=== PATIENT | female | born 1955 | race Caucasian/White ===

== ENCOUNTER 2018-05-26 08:59 | Inpatient (IN) ==
[2018-05-26] MEDS ORDERED: diphenhydrAMINE 50 MG/ML VIAL IV ONE ×2 (09:14→16:35)
--- NOTE | 2018-05-26 09:51 | Emergency Department Note ---
Allergic Reaction HPI - General Chief complaint: Allergic Reaction Stated complaint: fever, rash all over body Time Seen by Provider: 05/26/18 09:43 Source: patient Mode of arrival: wheelchair Limitations: no limitations - History of Present Illness HPI Narrative: This 62-year-old female comes because of an allergic reaction to daptomycin presumably with onset of a rash and itchiness around 7 PM last evening. She receives daptomycin every morning around 10 AM. She has a PICC line. 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 She was on vancomycin for around a month. She has been on the daptomycin about 5 days and this has been under the guidance of Dr. Balderas, infectious disease. She reports a temperature of 100.2 last evening as well as some chills and sweats. REVIEW OF SYSTEMS: Denies chest pain. Has had some cough in the past 24 hours. Has some chronic shortness of breath. No wheezing. No phlegm. Feels some tightness and pressure. Some abdominal discomforts. No nausea or vomiting. No diarrhea currently but she has a past history of this being fairly common. Denies anxiety and depression. - Related Data Home Medications Medication Instructions Recorded Confirmed Cetirizine [Zyrtec] 10 mg PO DAILY 12/29/15 05/22/18 Citalopram Hydrobromide [Celexa] 40 mg PO DAILY 12/29/15 05/22/18 Divalproex Sodium [Depakote] 250 mg PO HS 12/29/15 05/22/18 Ergocalciferol (Vitamin D2) 50,000 unit PO 2-3XW 12/29/15 05/22/18 [Vitamin D2] Gabapentin [Gralise] 600 mg PO HS 12/29/15 05/22/18 [place] Carbonate [Lithobid] 300 mg PO HS 12/29/15 05/22/18 Multivitamin [Multi-Day Vitamins] 1 each PO DAILY 12/29/15 05/22/18 Onabotulinumtoxina [Botox] 1 unit IJ ONCE 03/26/18 05/22/18 Pantoprazole [Protonix] 40 mg PO QAMAC 03/26/18 05/22/18 duloxetine 30 mg capsule,delayed 30 mg PO QDAY 05/07/18 05/22/18 release loperamide 2 mg capsule 4 mg PO DAILY PRN 05/07/18 05/22/18 pioglitazone 45 mg tablet 45 mg PO QDAY 05/07/18 05/22/18 risperidone 0.25 mg tablet 0.25 mg PO BID 05/22/18 05/22/18 Previous Rx's Medication Instructions Recorded Hydrocodone/APAP 7.5/325Mg [[place] 1 - 2 tab PO Q4HP PRN #50 tab 05/01/18 7.5-325Mg] daptomycin 500 mg intravenous 726 mg IV Q24H #21 each 05/20/18 solution Allergies Allergy/AdvReac Type Severity Reaction Status Date / Time clindamycin Allergy Severe Rash Verified 05/26/18 09:02 Past Medical History - Past Medical History [facility] Narrative: All Active Problems (Last Reviewed 05/22/18 @ 10:23 by Mary Carmen Díaz RN) Corns and callus (Chronic) Incontinence of urine (Chronic) Incontinence of feces (Chronic) Vitamin D deficiency (Chronic) Cerumen impaction (Chronic) Decreased strength (Chronic) Low back pain (Chronic) DDD (degenerative disc disease) (Chronic) Bipolar 1 disorder (Chronic) Parkinsons (Chronic) Brain tumor (Chronic) MRSA (methicillin resistant staph aureus) culture positive (Chronic) Diabetes (Chronic) Depression (Chronic) Wound dehiscence, surgical (Chronic) Diabetes has been mostly inactive or nonexistent after gastric sleeve bariatric surgery with A1c's under 4.8. Past Surgical History (Last Reviewed 05/22/18 @ 10:23 by Mary Carmen Díaz RN) History of arthroscopy of right knee (Chronic) History of cholecystectomy (Chronic) History of gastric bypass (Chronic) History of hysterectomy (Chronic) Family History (Last Reviewed 05/22/18 @ 10:23 by Mary Carmen Díaz RN) Mother Liver disease Alcoholism Heart disease Cancer Cirrhosis Father No problems noted. Psychiatric history: Reports: anxiety, depression, bipolar, other (Currently taking Celexa, Depakote, lithium, Risperdal) Surgical history ED: Reports: bariatric surgery (Gastric sleeve), hysterectomy - Social History smoking status: Former smoker Alcohol use: Reports: None Drug use: Reports: none. Denies: marijuana Physical Exam Limitations: no limitations General appearance: alert, in no apparent distress Head: atraumatic, normocephalic Eye: Present: EOMI ENT: other (No lip or tongue swelling.) Neck: Present: trachea midline. Absent: lymphadenopathy, thyromegaly Respiratory: Present: normal lung sounds bilaterally. Absent: respiratory distress, wheezes, stridor, accessory muscle use, prolonged expiratory phase Cardiovascular: Present: regular rate, normal rhythm. Absent: systolic murmur, diastolic murmur Abdominal: Present: soft. Absent: distention, tenderness, guarding, rebound, rigidity, organomegaly, mass Extremities: Absent: pedal edema, pretibial edema, calf tenderness Back: Absent: CVA tenderness (R), CVA tenderness (L), spinous process tenderness Neurological: Present: alert, oriented X3 Psychiatric: Present: normal affect, normal mood Skin: Present: warm, rash (Scattered pink spot redness and blotchiness moderately dense on the upper trunk; none or rare on the extremities.), diaphoresis Course Course Narrative: Probable allergic reaction to daptomycin. 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 Vital Signs Temperature 100.1 F H 05/26/18 08:59 Pulse Rate 121 H 05/26/18 08:59 Respiratory Rate 22 05/26/18 08:59 Blood Pressure 94/65 05/26/18 08:59 Pulse Oximetry (%) 95 05/26/18 08:59 Temperature 100.1 F H 05/26/18 08:59 Pulse Rate 110 H 05/26/18 09:16 Respiratory Rate 21 05/26/18 09:16 Blood Pressure 108/64 05/26/18 09:16 Pulse Oximetry (%) 95 05/26/18 09:16 Allergic Reaction - Lab Data Result diagrams: 05/26/18 09:12 05/26/18 09:12 Lab Results 05/26/18 Range/Units 09:12 Band Neutrophils % Not Reportable Disposition Pt seen by HVAC ESTIMATOR/PA only: No Clinical Impression: MRSA (methicillin resistant staph aureus) culture positive Allergic reaction Qualifiers: Encounter type: initial encounter Qualified Code(s): T78.40XA - Allergy, unspecified, initial encounter Summary: Labs pending. Benadryl given and has made her a bit sleepy. is helpful on giving information and history. Dr. Carvalho will follow-up for final disposition. Consider speaking with Dr. Balderas regarding long-term plan for antibiotics. Patient has a PICC line. Disposition: Still a Patient Condition: Fair Referrals: Lynda Matos [Primary Care Provider] -
[2018-05-26 10:08] LABS: Mean Corpuscular HGB Conc 33.1 g/dL (31.0-36.0); Mean Corpuscular Hemoglobin 29.8 pg (26.0-34.0); Platelet Count 434 K/mcL (140-440); RBC 3.74 M/mcL (4.00-5.20); Red Cell Distribution Width 14.3 % (11.5-14.5)
[2018-05-26 10:37] LABS: ALT/SGPT 19 U/l (0-40); Alkaline Phosphatase 130 U/L (39-117); Blood Urea Nitrogen 16 mg/dl (8-23); Eosinophils % (Manual) 9 % (0-7); Lymphocytes % 10 % (15-49); Monocytes % (Manual) 3 % (1-12); Platelet Estimate NORMAL (NORMAL); RBC Morphology NORMAL (NORMAL); Segmented Neutrophils % 77 % (38-78)
[2018-05-26] MEDS ORDERED: 0.9 % SODIUM CHLORIDE 1,000 ML IV ONE ×4 (10:53→18:25)
[2018-05-26] MEDS ORDERED: ONDANSETRON 4 MG/2 ML VIAL IV ONE (11:37)
[2018-05-26] MEDS ORDERED: LORazepam 1 MG TABLET PO ONE (11:54)
[2018-05-26] MEDS ORDERED: VANCOMYCIN 1,000 MG in 0.9 % SODIUM CHLORIDE 250 ML IV ONE (14:09)
--- NOTE | 2018-05-26 14:11 | Emergency Department Note ---
General Adult HPI - General Chief complaint: Allergic Reaction Stated complaint: fever, rash all over body Time Seen by Provider: 05/26/18 09:43 Source: patient Mode of arrival: wheelchair Limitations: no limitations - History of Present Illness HPI Narrative: I received this patient in checkout from Dr. Amauri Lau at shift change. I reviewed his note Essentially patient had lumbar laminectomy by Dr. Herring and subsequent had complications including wound dehiscence with possible infection. Followed by Dr. Balderas, infectious disease specialist. He initially had her on vancomycin and then changed to daptomycin. She had only 1 week to go of daptomycin when she developed significant rash. Confounding the issue is that she has had a fever and she recently started furosemide for pedal edema. - Related Data Home Medications Medication Instructions Recorded Confirmed Cetirizine [Zyrtec] 10 mg PO DAILY 12/29/15 05/22/18 Citalopram Hydrobromide [Celexa] 40 mg PO DAILY 12/29/15 05/22/18 Divalproex Sodium [Depakote] 250 mg PO HS 12/29/15 05/22/18 Ergocalciferol (Vitamin D2) 50,000 unit PO 2-3XW 12/29/15 05/22/18 [Vitamin D2] Gabapentin [Gralise] 600 mg PO HS 12/29/15 05/22/18 [place] Carbonate [Lithobid] 300 mg PO HS 12/29/15 05/22/18 Multivitamin [Multi-Day Vitamins] 1 each PO DAILY 12/29/15 05/22/18 Onabotulinumtoxina [Botox] 1 unit IJ ONCE 03/26/18 05/22/18 Pantoprazole [Protonix] 40 mg PO QAMAC 03/26/18 05/22/18 duloxetine 30 mg capsule,delayed 30 mg PO QDAY 05/07/18 05/22/18 release loperamide 2 mg capsule 4 mg PO DAILY PRN 05/07/18 05/22/18 pioglitazone 45 mg tablet 45 mg PO QDAY 05/07/18 05/22/18 risperidone 0.25 mg tablet 0.25 mg PO BID 05/22/18 05/22/18 Previous Rx's Medication Instructions Recorded Hydrocodone/APAP 7.5/325Mg [[place] 1 - 2 tab PO Q4HP PRN #50 tab 05/01/18 7.5-325Mg] daptomycin 500 mg intravenous 726 mg IV Q24H #21 each 05/20/18 solution Allergies Allergy/AdvReac Type Severity Reaction Status Date / Time clindamycin Allergy Severe Rash Verified 05/26/18 09:02 Past Medical History - Past Medical History Psychiatric history: Reports: anxiety, depression, bipolar, other (Currently taking Celexa, Depakote, lithium, Risperdal) Surgical history ED: Reports: bariatric surgery (Gastric sleeve), hysterectomy - Social History smoking status: Former smoker Alcohol use: Reports: None Drug use: Reports: none. Denies: marijuana Physical Exam Macular red rash mostly central in the trunk but spreading to the arms and legs with fine erythema clearly demarcated borders. Nonspecific but certainly most consistent with allergic type reaction. No pedal edema today. No respiratory compromise or angioedema but her cheeks are somewhat flushed likely secondary to fever Limitations: no limitations General appearance: alert, in no apparent distress Course Vital Signs Temperature 100.1 F H 05/26/18 08:59 Pulse Rate 121 H 05/26/18 08:59 Respiratory Rate 22 05/26/18 08:59 Blood Pressure 94/65 05/26/18 08:59 Pulse Oximetry (%) 95 05/26/18 08:59 Temperature 100.9 F H 05/26/18 12:16 Pulse Rate 91 H 05/26/18 14:16 Respiratory Rate 22 05/26/18 14:41 Blood Pressure 109/54 05/26/18 14:16 Pulse Oximetry (%) 96 05/26/18 14:16 Medical Decision Making - Medical Records Medical records reviewed: Yes I reviewed the patient's medical records. - Lab Data Lab results reviewed: Yes I reviewed the patient's lab results. Result diagrams: 05/26/18 09:12 05/26/18 09:12 Lab Results 05/26/18 05/26/18 05/26/18 Range/Units 09:12 09:12 10:15 WBC 11.9 H (4.5-11.0) K/mcL RBC 3.74 L (4.00-5.20) M/mcL Hgb 11.1 L (12.0-15.0) g/dL Hct 33.7 L (36.0-48.0) % MCV 90.0 (80.0-100.0) fL MCH 29.8 (26.0-34.0) pg MCHC 33.1 (31.0-36.0) g/dL RDW 14.3 (11.5-14.5) % Plt Count 434 (140-440) K/mcL MPV 8.5 (7.4-10.4) fL Total Counted 100 Seg Neutrophils % 77 (38-78) % Band Neutrophils % Not Reportable Lymphocytes % 10 L (15-49) % Monocytes % (Manual) 3 (1-12) % Eosinophils % (Manual) 9 H (0-7) % Reactive Lymphocytes 1 (0-2) % Platelet Estimate Normal (NORMAL) RBC Morphology Normal (NORMAL) VBG Lactic Acid 2.3 H (0.5-2.2) mmol/L Sodium 137 (133-145) mmol/L Potassium 4.2 (3.3-5.1) mmol/L Chloride 98 (96-108) mmol/L Carbon Dioxide 23 (22-30) mmol/L Anion Gap 16.0 (8-16) BUN 16 (8-23) mg/dl Creatinine 1.7 H (0.6-1.1) mg/dl GFR Calculation 32 Glucose 175 H (70-105) mg/dL Calcium 9.0 (8.6-10.4) mg/dl Total Bilirubin 0.4 (0.0-1.0) mg/dL AST 19 (0-37) U/l ALT 19 (0-40) U/l Alkaline Phosphatase 130 H (39-117) U/L Total Protein 6.0 (5.9-8.4) gm/dL Albumin 3.0 L (3.2-5.2) gm/dL Globulin 3.0 (2.2-3.7) gm/dL Albumin/Globulin Ratio 1.0 (1.0-2.3) - Radiology Data Radiology results reviewed: Yes I reviewed the patient's radiology results. Reviewed MRI of the back with Dr. Sommer and Dr. Balderas. A seroma is seen subfascial which is tiny. More superficial fluid collection about 5 cm is seen in the wound site, benign-appearing. Dr. Sommer will do ultrasound-guided aspirate Disposition Pt seen by MOLECULAR GENETICIST/PA only: No Clinical Impression: MRSA (methicillin resistant staph aureus) culture positive, Acute kidney injury Allergic reaction Qualifiers: Encounter type: initial encounter Qualified Code(s): T78.40XA - Allergy, unspecified, initial encounter Wound dehiscence, surgical Qualifiers: Encounter type: subsequent encounter Qualified Code(s): T81.31XD - Disruption of external operation (surgical) wound, not elsewhere classified, subsequent encounter Fluid collection at surgical site Qualifiers: Encounter type: initial encounter Qualified Code(s): T88.8XXA - Other specified complications of surgical and medical care, not elsewhere classified, initial encounter Summary: Discussed case with Dr. Balderas, infectious disease specialist and Dr. Sommer, radiologist. He recommended restarting vancomycin and stopping furosemide and daptomycin. He believes that is he is likely from furosemide sulfa moiety, as this is a common cause of allergy, rather than the daptomycin which rarely causes a rash. he is okay with continuing Benadryl but recommends against steroids at this point as she does not have significant respiratory compromise or angioedema and this may compromise her ability to fight infection. Recommends not starting another diuretic unless she develops significant edema. Dr. Sommer agreed to do aspiration of fluid collection superficial at wound site, seen on MRI. Laboratories notable for increased creatinine 1.7 as well as modestly elevated white blood cell count. IV fluids were running After aspiration I did discuss the case with Dr. Sathish Jamison, hospitalist. He agreed to come see the patient and evaluate for admission Garibay is placed for urinary incontinence Disposition: Xfer As Inpt ([facility]) Condition: Fair Referrals: Lynda Matos [Primary Care Provider] -
--- NOTE | 2018-05-26 14:21 | Magnetic Resonance Report ---
CLINICAL INFORMATION: Post L3-4 and L4-5 decompression laminectomy and fever COMPARISON: Preoperative lumbar MRI from 03/11/2018 TECHNIQUE: Sagittal T1 FLAIR, STIR, fast spin echo T2, axial T2 weighted images were acquired. FINDINGS: The lumbar spine is anatomically aligned. Moderate size chronic Schmorl's node invaginating the central L3 endplate - as previously seen. Marrow signal is otherwise normal. Conus medullaris ends at T12 homogeneous echo. Cauda equina roots are normal. The T11-T12 through L1-2 disc levels are normal. At L2-3, mild broad disc protrusion and facet arthropathy results in mild central canal stenosis. This is unchanged At the L3-4 decompression laminectomy site, there is minimal annular bulge and facet arthropathy resulting in only minimal canal narrowing. There is mild granulation tissue in the former site of the lamina. At L4-5 decompression laminectomy site, there is a 18 mm thin-walled simple appearing fluid collection centrally and the former site of the lamina. Mild facet arthropathy, minimal annular bulge results in minimal IV foraminal and central canal narrowing.. A second larger 5 cm fluid collection is seen in the subcutaneous fat at midline at L3-4. Is not does not appear to communicate with the deeper fluid collection L4-5 laminar region. At L5-S1, mild broad disc spur complex slightly impinges the thecal sac. There is mild facet arthropathy. IMPRESSION: 1. L3-4 and L4-5 decompression laminectomy. There is mild residual facet arthropathy resulting in only minimal central canal and IV narrowing. An 18 mm simple appearing fluid collection in the former region of the L4 lamina, near midline, is most likely a seroma although infection not excluded. There is a second 5 cm fluid collection noted in the subcutaneous fat at midline over the L3-4 laminectomy site. It is more likely a seroma than infection. 2. Mild degenerative change in the remaining levels - stable Interpreted and Authenticated by: Adolph Sommer 05/26/18
[2018-05-26 16:58] LABS: Appearance,Urine CLEAR; Bacteria,Urine 0 /hpf (0); Bilirubin,Urine NEG (NEG); Color,Urine YELLOW; Glucose,Urine (UA) NEGATIVE (NEG); Leukocyte Esterase,Urine 500 /uL (NEG); Protein,Urine NEG (NEG); Specific Gravity,Urine 1.008 (1.000-1.035); Urine Blood NEG mg/dL (<0.03); Urine RBC 1 /hpf (0-1); Urine Squamous Epithelial Cell 0 /hpf (0-4); Urine Transitional Epi Cells < 1 /hpf (0-2); Urine WBC 12 /hpf (0-4); Urobilinogen,Urine NEG (NEG)
--- NOTE | 2018-05-26 16:59 | Ultrasound Report ---
CLINICAL INFORMATION: 8 cm subdermal fluid collection over the L3-4 L4-5 decompression laminectomy site. TECHNIQUE: The fluid was sonographically localized. The skin overlying the fluid was marked, prepped and locally anesthetized with lidocaine using a 25-gauge needle. A 20-gauge needle was then advanced under sonographic guidance into the fluid and approximately 3 cc of serous appearing fluid was aspirated and sent for requested studies. The entire fluid collection, unfortunately, could not be aspirated. Patient tolerated procedure well without apparent complication. IMPRESSION: Successful ultrasound-guided aspiration of subdermal fluid collection in the posterior paraspinous region at midline L3-4 L4-5. 3 cc of serous apurulent appearing fluid was aspirated and sent for requested studies Interpreted and Authenticated by: Adolph Sommer 05/26/18
--- NOTE | 2018-05-26 17:03 | Infectious Disease Consult ---
History of Present Illness Patient information: Note initiated : 05/26/18 at 4:49 pm Service Date, if different from initiated Date: [] Patient: Mary Triplett 62 y/o F admitted on for fever, rash all over body. Chief Complaint: [] Consult date: 05/26/18 Requesting Physician: Dr Carvalho Reason for Consult: fever with rash Chief complaint: I broke out, and my low grade fevers are not going away History of present illness: Patient well-known to me from her previous visit 05/07/18 and 05/22/18 for MRSA SSI in area of her L4-L5 decompression laminectomy done in Mar, 2018. Briefly she is a 62-year-old lady with recent history of superficial incisional surgical site infection due to MRSA over the L4-L5 decompression incision, diagnosed on 28 April, status post almost 22 days of IV antibiotics [IV vancomycin from 05/04/18 till 05/20 and then IV daptomycin since then till today] . The reason to switch from IV vancomycin to daptomycin was reason her creatinine and difficulty getting troughs from supratherapeutic to therapeutic levels. [facility] until [facility]/18 and was subsequently discharged to home. She completed the decolonization protocol with intranasal mupirocin and whole body chlorhexidine. Patient was last seen by me on 05/22/18. At that time she endorsed occasional chills along with feeling tired and weak mainly in the lower extremities since last 4 days and low-grade temperatures around 99 F. Today a.m., she called our office with complaints of acute onset rash [described as red, blotchy] involving all of her body along with itching and low-grade fevers. Patient was instructed to go to the ER. I saw her in the ER. When asked about any recent new medications, she mentioned that she was started on Lasix in the detention and was continued thereafter. She denied trying any new foods or exposure to new pets recently. She denied any other symptoms such as worsening of back pain [above her baseline], worsening of weakness compared to reported few days ago, nausea, vomiting, body aches, diarrhea. In the ED she had a temperature of 38.3C, along with blood pressure of 92-132 systolic [fluctuating], tachycardia, lactic acid of 2.3, white cell count of 7.9 with 9% eosinophils, creatinine of 1.7. Per discussion with the ED physician, she underwent MRI of lumbar spine which showed "An 18 mm simple appearing fluid collection in the former region of the L4 lamina, near midline, is most likely a seroma although infection not excluded. There is a second 5 cm fluid collection noted in the subcutaneous fat at midline over the L3-4 laminectomy site. It is more likely a seroma than infection". Review of Systems All systems PM: reviewed and no additional remarkable complaints except as stated Past History Past medical history: Corns and callus (Chronic) Incontinence of urine (Chronic) Incontinence of feces (Chronic) Vitamin D deficiency (Chronic) Cerumen impaction (Chronic) Decreased strength (Chronic) Low back pain (Chronic) DDD (degenerative disc disease) (Chronic) Bipolar 1 disorder (Chronic) Parkinsons (Chronic) Brain tumor (Chronic) MRSA (methicillin resistant staph aureus) culture positive (Chronic) Diabetes (Chronic) Depression (Chronic) Past family history: Not pertinent to the current medical problem Past social history: Lives with her in [place] Medications and Allergies Home Medications Medication Instructions Recorded Confirmed Type Citalopram Hydrobromide [Celexa] 40 mg PO DAILY 12/29/15 05/26/18 History Divalproex Sodium [Depakote] 250 mg PO HS 12/29/15 05/26/18 History Ergocalciferol (Vitamin D2) 50,000 unit PO 2-3XW 12/29/15 05/26/18 History [Vitamin D2] Gabapentin [Gralise] 600 mg PO HS 12/29/15 05/26/18 History [place] Carbonate [Lithobid] 300 mg PO HS 12/29/15 05/26/18 History Pantoprazole [Protonix] 20 mg PO BID 03/26/18 05/26/18 History Hydrocodone/APAP 7.5/325Mg [[place] 1 - 2 tab PO Q4HP PRN #50 tab 05/01/18 Rx 7.5-325Mg] daptomycin 500 mg intravenous 726 mg IV Q24H #21 each 05/20/18 05/26/18 Rx solution Folic Acid/Vit Bcomp,C [Dialyvite 1 each PO WEEKLY 05/26/18 05/26/18 History Tablet] Furosemide [Lasix] 40 mg PO DAILY 05/26/18 05/26/18 History Potassium Chloride [Kdur] 10 meq PO BIDCC 05/26/18 05/26/18 History risperiDONE [Risperdal] 0.5 mg PO BID 05/26/18 05/26/18 History traMADol HCL [Ultram] 50 mg PO BID PRN 05/26/18 05/26/18 History Allergies Allergy/AdvReac Type Severity Reaction Status Date / Time clindamycin Allergy Severe Rash Verified 05/26/18 09:02 Physical Examination Vital signs: Temp Pulse Resp BP Pulse Ox 37.4 C H 96 H 20 102/73 94 05/26/18 16:08 05/26/18 16:08 05/26/18 16:08 05/26/18 16:08 05/26/18 16:08 General appearance: no acute distress Eyes pulmonary: nonicteric Auscultation: bilateral: clear Cardiovascular: regular rate and rhythm Gastrointestinal: normoactive bowel sounds Musculoskeletal: other (no tenderness over the vertebral spinous processes, there is dependent erythema but no drainage or sinus observed on the back. The surgical scar has healed well) Skin exam: Has diffuse maculopapular rash mainly over the trunk although also seen in lower extremities and upper extremities. No mucosal involvement seen Results - Laboratory Findings CBC and BMP: 05/27/18 04:35 05/27/18 04:30 Abnormal lab findings: Abnormal Labs 05/26/18 05/26/18 05/26/18 09:12 09:12 10:15 WBC 11.9 H RBC 3.74 L Hgb 11.1 L Hct 33.7 L Lymphocytes % 10 L Eosinophils % (Manual) 9 H VBG Lactic Acid 2.3 H Creatinine 1.7 H Glucose 175 H Alkaline Phosphatase 130 H Albumin 3.0 L Assessment and Plan - Narrative A/P Narrative: Assessment: 1. New onset rash: Could be secondary to Lasix [which has a sulfa moiety] and known to cause wide variety of dermatological syndromes including DRESS. Daptomycin could also be responsible and in review of literature it can cause rash in about 4% of adults. -Elevated eosinophils on the differential support the diagnosis of drug-induced allergic reaction. Urine eosinophils should also be considered to rule out the possibility of interstitial nephritis 2. Low-grade fevers with evidence of 2 fluid collections at the previous surgical site [L3-L5] raise concern for being infected -Patient has been on effective IV antibiotic therapy, nevertheless given her elevated blood sugars and virulence of MRSA; it is quite likely that she could have an underlying infection. Status post ultrasound-guided drainage with Gram stain and culture/sensitivity pending 3. Acute kidney injury:Could be contributed by acute interstitial nephritis given patient's fever and rash. Could be secondary to infection and/or dehydration, Recommendations: Consider admission to the hospital -Trend lactic acid as initial one was 2.3 Agree with sending blood cultures and await Gram stain and culture of ultrasound guided aspirate of those spinal fluid collection Start IV vancomycin with renal adjustment [consult pharmacy]. Target serum levels 10-20 Stop Lasix and daptomycin Spoke with [facility] lab to add urine eosinophils which if positive may support the diagnosis of acute interstitial nephritis given patient's elevated creatinine. Further ABNER workup per primary team -Agree with low-dose Benadryl for rash Will follow if patient is admitted to the hospital Dylan Balderas MD Infectious disease
[2018-05-26] MEDS ORDERED: ACETAMINOPHEN 325 MG TABLET PO ONE (17:39)
[2018-05-26] MEDS ORDERED: oxyCODONE HCL 5 MG TABLET PO PRN ×2 (17:43→19:48)
[2018-05-26] MEDS ORDERED: ACETAMINOPHEN 325 MG TABLET PO PRN (17:43)
[2018-05-26] MEDS ORDERED: MAGNESIUM HYDROXIDE 30 ML ORAL.SUSP PO PRN ×2 (17:43→19:48)
[2018-05-26] MEDS ORDERED: cefTRIAXone 1 GM in DEXTROSE 5% IN WATER 50 ML IV SCH (18:00)
--- NOTE | 2018-05-26 18:13 | Internal Med History&Physical ---
Medical - H&P: HPI Patient information: Note initiated : 05/26/18 at 6:07 pm Service Date, if different from initiated Date: [] Patient: Mary Triplett a 62 y/o F admitted on for fever, rash all over body. Chief Complaint: [] History of present illness: Ms. Triplett is a 62 year old F Patient underwent surgery late March for L3-4-[address] Herring. Patient then had superficial dehiscence of the wound and was infected or colonized with MRSA and treated with vancomycin until 05/20. Patient was then switched to daptomycin due to difficulty managing her peak and trough levels which were unpredictable. Patient on the has had some irritability and was started on Risperdal but she was oriented taking Risperdal for greater than a year in the remote past. It has had good function for her psyche. Today she comes in with fever and rash that began last evening. She had suspicion that this is furosemide or possibly daptomycin as per Dr. Balderas. Due to fevers of greater than 100 she underwent MRI of the spine and this showed a fluid collection which has been sampled by Dr. Sommer. Patient is referred for admission regarding fever and rash and possible infected soft tissue fluid collection patient also has a UTI Patient is accompanied by her who reports that patient did initially have chills on occasion just from her Parkinson's but she has never had a rash or fever from Parkinson's. Patient tells me that immediately after starting daptomycin and she actually felt a little better on that then vancomycin until last evening. The furosemide she has been taking for later than 17 days. The Risperdal for greater than 5 days since restart but again she took that years ago - Constitutional Constitutional: Present: fever(s), lethargy, night sweats, weakness - Cardiovascular Cardiovascular: Absent: chest pain - Respiratory Respiratory: Absent: dyspnea, hemoptysis, wheezing, stridor - Gastrointestinal Gastrointestinal: Absent: abdominal pain, nausea, vomiting - Genitourinary Genitourinary: Absent: difficulty voiding, vaginal discharge, vaginal pruritis - Musculoskeletal Musculoskeletal: Present: as per HPI, muscle weakness - Integumentary Integumentary: Present: erythema, rash - Neurological Neurological: Present: as per HPI, weakness. Absent: sensory deficit, other visual disturbances - Psychiatric Psychiatric: Present: behavioral changes, mood swings - Allergic/Immunologic Allergic/Immunologic: Present: itchy eyes. Absent: tongue swelling, throat swelling, uticaria, wheezing, lip swelling Medical - H&P: PMH Medical history: Parkinson DJD Lumbar Spine Obesity Htn Diabetes MRSA wound infection Surgical history: Lumbar surgery 03/2018 Lumbar wound incision and drainage 04/28/18 Social history: and non smoker no street drugs. occasional alcohol Cognitive capacity: normal Functional capacity: uses cane/walker Have you smoked in the last 12 months: No Drug use: none Alcohol use: none Medical - H&P: Meds Home Medications Medication Instructions Recorded Confirmed Type Citalopram Hydrobromide [Celexa] 40 mg PO DAILY 12/29/15 05/22/18 History Divalproex Sodium [Depakote] 250 mg PO HS 12/29/15 05/22/18 History Ergocalciferol (Vitamin D2) 50,000 unit PO 2-3XW 12/29/15 05/22/18 History [Vitamin D2] Gabapentin [Gralise] 600 mg PO HS 12/29/15 05/22/18 History [place] Carbonate [Lithobid] 300 mg PO HS 12/29/15 05/22/18 History Pantoprazole [Protonix] 40 mg PO QAMAC 03/26/18 05/22/18 History Hydrocodone/APAP 7.5/325Mg [[place] 1 - 2 tab PO Q4HP PRN #50 tab 05/01/18 Rx 7.5-325Mg] daptomycin 500 mg intravenous 726 mg IV Q24H #21 each 05/20/18 05/22/18 Rx solution Folic Acid/Vit Bcomp,C [Dialyvite 1 each PO WEEKLY 05/26/18 05/26/18 History Tablet] Furosemide [Lasix] 40 mg PO DAILY 05/26/18 05/26/18 History Potassium Chloride [Kdur] 10 meq PO BIDCC 05/26/18 05/26/18 History risperiDONE [Risperdal] 0.5 mg PO BID 05/26/18 05/26/18 History traMADol HCL [Ultram] 50 mg PO BID PRN 05/26/18 05/26/18 History Allergies Allergy/AdvReac Type Severity Reaction Status Date / Time clindamycin Allergy Severe Rash Verified 05/26/18 09:02 Medical - H&P: Exam - Constitutional Vitals: Temp Pulse Resp BP Pulse Ox 101.8 F H 107 H 25 H 219/164 95 05/26/18 17:54 05/26/18 17:39 05/26/18 17:43 05/26/18 17:43 05/26/18 17:39 General appearance: morbidly obese, no acute distress - Head Additional comments: swollen cheeks. macular papular fine rash over cheeks and chin - Eye Eye exam: Absent: conjunctival injection, scleral icterus - Expanded ENT Exam Mouth exam: Present: moist, tongue normal. Absent: drooling, muffled voice, tongue hypertrophy - Neck Neck exam: Present: full ROM. Absent: lymphadenopathy, meningismus, tenderness - Respiratory Respiratory exam: Present: normal respiratory exam. Absent: stridor, wheezes - Cardiovascular Cardiovascular exam: Present: normal rate and rhythm - GI/Abdominal GI/Abdominal exam: Present: normal bowel sounds, soft. Absent: distended, guarding, tenderness - Extremities Exam Extremities exam: Present: Foot pink and warm. Absent: pedal edema - Expanded Upper Extremities Exam Hand wrist exam: Present: normal inspection - Back Exam Back exam: Present: rash noted. Absent: tenderness, vertebral tenderness Additional comments: no fluctuance - Neurological Exam Neurological exam: Present: alert, oriented X3 - Expanded Neurological Exam Neurological exam expanded: Absent: expressive aphasia, receptive aphasia Speech: Present: fluid speech - Psychiatric Psychiatric exam: Present: normal affect, normal mood. Absent: agitated, flat affect - Skin Skin exam: Present: erythema, rash Additional comments: macular not papular except on cheeks and chin. rash covers all of back and also on arms and face. legs is less dense. minimal at level ankle. - Expanded Skin Exam Description of rash: Present: confluent, macular, papular. Absent: fluctuant, indurated, tenderness, urticarial, vesicular Medical - H&P: Reslt - Labs CBC & Chem 7: 05/26/18 09:12 05/26/18 09:12 Labs: Short CBC 05/26/18 Range/Units 09:12 WBC 11.9 H (4.5-11.0) K/mcL Hgb 11.1 L (12.0-15.0) g/dL Hct 33.7 L (36.0-48.0) % Plt Count 434 (140-440) K/mcL BMP 05/26/18 09:12 Sodium 137 Potassium 4.2 Chloride 98 Carbon Dioxide 23 BUN 16 Creatinine 1.7 H Glucose 175 H Calcium 9.0 Liver Function 05/26/18 Range/Units 09:12 Total Bilirubin 0.4 (0.0-1.0) mg/dL AST 19 (0-37) U/l ALT 19 (0-40) U/l Alkaline Phosphatase 130 H (39-117) U/L Albumin 3.0 L (3.2-5.2) gm/dL Urine 05/26/18 Range/Units 16:12 Urine Color Yellow Urine Appearance Clear Urine pH 6.0 (5.0-9.0) Ur Specific [place] 1.008 (1.000-1.035) Urine Protein Neg (NEG) mg/dL Urine Glucose (UA) Negative (NEG) mg/dL Medical - H&P: A/P (1) Allergic reaction caused by a drug Current visit: Yes Status: Acute possibly daptomycin, furosemide or risperdone in that order based on history. Will hold all of those. Treat with benadryl. Will give steroids if worsened itching or painful. currently is not and will likely be manageable with benadryl. monitor for breathing difficulty. (2) MRSA (methicillin resistant staph aureus) culture positive Problem details: post op surgical wound. on dapto and recommended to resume vancomycin. will address tomorrow with antibiotics. await culture results from lumbar sampling 5cm fluid collection. Current visit : Yes Status: Chronic (3) UTI (urinary tract infection) Current visit: Yes Status: Acute 13 leukocytes per HPF seen in urine. culture pending will cover with rocephin for now. (4) Fever Current visit: Yes Status: Acute unclear etiology. Will treat for UTI and fever with tylenol for now. anticipate starting Vancomycin for MRSA tomorrow. - Narrative A/P Narrative: 70 mins spent in evaluation and coordination of care for this patient today.
[2018-05-26] MEDS ORDERED: VANCOMYCIN PER PHARMACY IV ONE (18:31)
--- NOTE | 2018-05-26 18:37 | XRay Report ---
CLINICAL INFORMATION: Hypertension COMPARISON: 05/15/2018 FINDINGS: The heart is mildly enlarged but unchanged. Left PICC line tip overlies the SVC right atrial junction. Mediastinum and pulmonary vessels are normal. There is mild infiltrate or atelectasis seen in both infrahilar region. IMPRESSION: Mild infiltrate or atelectasis developing in both infrahilar regions. Interpreted and Authenticated by: Adolph Sommer 05/26/18
[2018-05-26 19:46] LABS: Appearance, Body Fluid BLOODY; Color, Body Fluid RED; Nucleated Cells,Body Fld 196 /cumm; RBC, Body Fluid < 50000 /cumm; Total Cell Count Body Fld 100
[2018-05-26] MEDS ORDERED: VANCOMYCIN PER PHARMACY IV SCH (21:00)
[2018-05-26] MEDS ORDERED: DOCUSATE SODIUM 100 MG CAPSULE PO SCH (21:00)
[2018-05-26] MEDS ORDERED: LITHIUM CARBONATE 300 MG TABLET PO SCH (21:00)
[2018-05-26] MEDS: DIVALPROEX SODIUM 250 MG TAB.ER.24H PO SCH (21:54)
[2018-05-26] MEDS: risperiDONE 0.25 MG TABLET PO SCH (21:54)
[2018-05-26] MEDS: GABAPENTIN 300 MG CAPSULE PO SCH (21:55)
[2018-05-26] MEDS: HYDROCODONE/APAP 7.5/325MG TABLET PO PRN (21:57)
[2018-05-26] MEDS: 0.9 % SODIUM CHLORIDE 10 ML SYRINGE IV SCH (21:58)
[2018-05-26] MEDS ORDERED: 0.9 % SODIUM CHLORIDE 10 ML SYRINGE IV SCH (22:00)
[2018-05-26] MEDS: DOCUSATE SODIUM 100 MG CAPSULE PO SCH (22:24)
[2018-05-27] MEDS: diphenhydrAMINE 25 MG CAPSULE PO PRN ×2 (01:00→05:58)
[2018-05-27] MEDS: 0.9 % SODIUM CHLORIDE 10 ML SYRINGE IV SCH ×3 (05:32→22:08)
[2018-05-27 06:15] LABS: Basophils # (Auto) 0 K/mcL (0.0-0.3); Basophils % (Auto) 0 % (0.0-2.0); Eosinophils # (Auto) 0.9 K/mcL (0.0-0.7); Eosinophils % (Auto) 7.1 % (0.0-7.0); Lymphocytes # (Auto) 0.9 K/mcL (1.5-4.8); Lymphocytes % (Auto) 6.7 % (15.5-49.0); Mean Cell Volume 90.7 fL (80.0-100.0); Mean Corpuscular HGB Conc 32.7 g/dL (31.0-36.0); Mean Corpuscular Hemoglobin 29.7 pg (26.0-34.0); Monocytes # (Auto) 1.1 K/mcL (0.1-0.9); Monocytes % (Auto) 8.2 % (1.0-12.0); Platelet Count 379 K/mcL (140-440); RBC 3.57 M/mcL (4.00-5.20); Red Cell Distribution Width 14.6 % (11.5-14.5)
[2018-05-27 06:49] LABS: Blood Urea Nitrogen 15 mg/dl (8-23)
[2018-05-27] MEDS ORDERED: PANTOPRAZOLE 40 MG PACKET PO SCH (07:30)
[2018-05-27] MEDS: ENOXAPARIN 40 MG/0.4 ML SYRINGE SQ SCH (08:51)
[2018-05-27] MEDS: CITALOPRAM 20 MG TABLET PO SCH (08:51)
[2018-05-27] MEDS: risperiDONE 0.25 MG TABLET PO SCH ×2 (08:51→20:38)
[2018-05-27] MEDS: DOCUSATE SODIUM 100 MG CAPSULE PO SCH ×2 (08:52→20:40)
[2018-05-27] MEDS ORDERED: ENOXAPARIN 40 MG/0.4 ML SYRINGE SQ SCH (09:00)
[2018-05-27] MEDS ORDERED: cefTRIAXone 1 GM VIAL IV SCH (09:00)
[2018-05-27] MEDS: ACETAMINOPHEN 325 MG TABLET PO PRN ×2 (09:29→22:02)
[2018-05-27] MEDS ORDERED: PANTOPRAZOLE 40 MG TABLET PO SCH (10:00)
[2018-05-27] MEDS: PANTOPRAZOLE 40 MG TABLET PO SCH (13:00)
[2018-05-27] MEDS: FOLIC ACID/VITAMIN B COMP W-C 1 TAB TABLET PO SCH (13:05)
--- NOTE | 2018-05-27 14:00 | Infectious Disease Prog Note ---
Subjective Patient information: Note initiated : 05/27/18 at 1:51 pm Service Date, if different from initiated Date: [] Patient: Mary Triplett 62 y/o F admitted on 05/26/18 for Fever, Rash all over Body/MRSA. Chief Complaint: [] Interval history: Patient feeling little more tired and weak today. When I saw her she was trying to eat food and was spilling it over her clothing. She denied any diarrhea, nausea, vomiting. She still feels itchy and had fever last night and today. She endorses back pain and lower extremity weakness but not worse than yesterday or over last few days Objective - Vital Signs Vital signs: Vital Signs Temp Pulse Pulse Resp BP BP Pulse Ox 05/27/18 12:00 36.6 C 108 H 18 94/55 91 05/27/18 10:14 37.1 C 05/27/18 09:29 38.4 C H 05/27/18 08:00 38.5 C H 102 H 18 108/64 93 05/27/18 04:00 37.0 C 96 H 18 104/58 90 05/27/18 00:00 36.6 C 87 22 91/56 91 05/26/18 19:40 37.3 C H 05/26/18 19:39 37.3 C H 102 H 24 H 91/53 93 05/26/18 19:30 37.3 C H 110 H 102 H 24 H 135/66 91/53 93 05/26/18 19:23 38.6 C H 05/26/18 19:15 38.7 C H 27 H 135/66 05/26/18 19:00 38.8 C H 27 H 126/62 05/26/18 18:45 38.9 C H 26 H 128/64 05/26/18 18:30 39.0 C H 110 H 28 H 123/60 88 L 05/26/18 18:15 38.9 C H 33 H 135/76 05/26/18 18:10 38.9 C H 108 H 27 H 112/75 92 05/26/18 18:00 38.8 C H 105 H 30 H 113/60 99 05/26/18 17:54 38.8 C H 05/26/18 17:43 38.7 C H 25 H 05/26/18 17:39 38.6 C H 107 H 27 H 95 05/26/18 17:37 38.6 C H 103 H 29 H 93 05/26/18 17:15 38.3 C H 103 H 20 138/109 96 05/26/18 17:05 38.2 C H 107 H 22 117/92 94 05/26/18 17:03 38.2 C H 99 H 25 H 87/50 95 05/26/18 16:46 38.1 C H 95 H 18 106/59 97 05/26/18 16:31 38.0 C H 95 H 28 H 104/66 94 05/26/18 16:17 37.8 C H 93 H 18 112/52 95 05/26/18 16:08 37.4 C H 96 H 20 102/73 94 05/26/18 16:02 96 H 20 76/56 94 05/26/18 14:41 22 05/26/18 14:16 91 H 19 109/54 96 05/26/18 14:00 20 106/55 Intake and Output 05/26/18 05/27/18 05/27/18 21:59 05:59 13:59 Intake Total 3300 / 3300 200 / 200 Output Total 975 / 975 Balance 3300 / 3300 -775 / -775 Intake: IV 3300 / 3300 Sodium Chloride 0.9% 1,000 ml @ 3000 / 3000 Wide Open IV BOLUS ONE Rx#: [id number] Vancomycin 1,000 mg In Sodium 250 / 250 Chloride 0.9% 250 ml @ 250 mls/ hr IV ONCE ONE Rx#:[id number] Rocephin 1 gm In Dextrose 5% in 50 / 50 Water 50 ml @ 100 mls/hr IV Q24H [facility] Rx#:[id number] Oral 200 / 200 Output: Urine Catheter Amount 975 / 975 Other: Urine Appearance Clear Uretheral (Garibay) Clear Urine Color Dark Yellow Uretheral (Garibay) Bright Yellow Urine Odor Strong Uretheral (Garibay) Normal Weight 122.47 kg Intake & Output: Intake & Output 05/26/18 05/27/18 05/27/18 21:59 05:59 13:59 Intake Total 3300 / 3300 200 / 200 Output Total 975 / 975 Balance 3300 / 3300 -775 / -775 Weight 122.47 kg Intake: IV 3300 / 3300 Sodium Chloride 0.9% 1,000 ml @ 3000 / 3000 Wide Open IV BOLUS ONE Rx#: [id number] Vancomycin 1,000 mg In Sodium 250 / 250 Chloride 0.9% 250 ml @ 250 mls/ hr IV ONCE ONE Rx#:[id number] Rocephin 1 gm In Dextrose 5% in 50 / 50 Water 50 ml @ 100 mls/hr IV Q24H [facility] Rx#:[id number] Oral 200 / 200 Output: Urine Catheter Amount 975 / 975 Other: Urine Appearance Clear Uretheral (Garibay) Clear Urine Color Dark Yellow Uretheral (Garibay) Bright Yellow Urine Odor Strong Uretheral (Garibay) Normal - General Appearance General appearance: obese, anxious Respiratory: course breath sounds (Has decreased breath sounds at bilateral lung bases) Cardiology: no murmurs, normal S1, normal S2 Gastrointestinal: normoactive bowel sounds, no tenderness, obese Integumentary: rash (Maculopapular mainly over the trunk and back with macular in lower extremities) Neurologic: no focal deficit (Patient is alert and oriented to time place and person. Her strength in upper and lower extremities is 4-5 out of 5. ) - Lab 05/27/18 04:35 05/27/18 04:30 Most recent lab results Calcium 8.5 mg/dl (8.6-10.4) L 05/27/18 04:30 Microbiology 05/26/18 17:50 Aspirate - Other Gram Stain - Final 05/26/18 17:50 Aspirate - Other Body Fluid Culture - Preliminary 05/26/18 16:12 Urine - Clean Void Mid-Stream Urine Culture - Preliminary Gram negative bacillus 05/26/18 15:50 Incision - Lumbar 1 Gram Stain - Final 05/26/18 15:50 Incision - Lumbar 1 Wound Culture - Final Medications Active Medications: Acetaminophen (Tylenol) 650 mg PO Q6HP PRN PRN Reason: PAIN/FEVER > 101 Last Admin: 05/27/18 09:29 Dose: 650 mg Hydrocodone Bitart/Acetaminophen ([place] 7.5/325mg) 1 - 2 tab PO Q4HP PRN PRN Reason: Pain Last Admin: 05/26/18 21:57 Dose: 1 tab Citalopram Hydrobromide (Celexa) 40 mg PO DAILY [facility] Last Admin: 05/27/18 08:51 Dose: 40 mg Diphenhydramine HCl (Benadryl) 25 mg PO Q4HP PRN PRN Reason: Allergic Symptoms Last Admin: 05/27/18 05:58 Dose: 25 mg Admin: 05/27/18 01:00 Dose: 25 mg Divalproex Sodium (Depakote Er) 250 mg PO HS [facility] Last Admin: 05/26/18 21:54 Dose: 250 mg Docusate Sodium (Colace) 100 mg PO BID [facility] Last Admin: 05/27/18 08:52 Dose: 100 mg Admin: 05/26/18 22:24 Dose: Not Given Non-Admin Reason: Patient Refused Enoxaparin Sodium (Lovenox) 40 mg SQ DAILY [facility] Last Admin: 05/27/18 08:51 Dose: 40 mg Ergocalciferol (Drisdol) 50,000 unit PO TuSa@0900 [facility] Gabapentin (Neurontin) 600 mg PO [facility] Last Admin: 05/26/18 21:55 Dose: 600 mg Piperacillin Sod/Tazobactam (Sod 3.375 gm/ Dextrose) 50 mls @ 100 mls/hr IV Q6H [facility] [place] Carbonate ([place] Carbonate) 300 mg PO HS [facility] Magnesium Hydroxide (Milk Of Magnesia) 30 ml PO DAILYP PRN PRN Reason: Constipation Multivit/Ca Carb/B Cmplx/FA/Prenat (Diatx) 1 tab PO DAILY [facility] Last Admin: 05/27/18 13:05 Dose: 1 tab Oxycodone HCl (Roxicodone) 5 mg PO Q4HP PRN PRN Reason: PAIN LEVEL 3-6 Pantoprazole Sodium (Protonix) 40 mg PO ACB [facility] Last Admin: 05/27/18 13:00 Dose: 40 mg Risperidone (Risperdal) 0.5 mg PO BID [facility] Last Admin: 05/27/18 08:51 Dose: 0.5 mg Admin: 05/26/18 21:54 Dose: 0.5 mg Sodium Chloride (Saline Flush) 10 ml IV Q8 [facility] Last Admin: 05/27/18 13:36 Dose: 10 ml Admin: 05/27/18 05:32 Dose: 10 ml Admin: 05/26/18 21:58 Dose: 10 ml Vancomycin HCl (Vancomycin Per Pharmacy) 1 order IV UD [facility] Assessment and Plan - Narrative A/P Narrative: Assessment: 1. New onset rash: Still there. Patient off Lasix and daptomycin Could be secondary to Lasix [which has a sulfa moiety] and known to cause wide variety of dermatological syndromes including DRESS. Daptomycin could also be responsible and in review of literature it can cause rash in about 4% of adults. -Elevated eosinophils [900, 7% on the differential] today and yesterday support the diagnosis of drug-induced allergic reaction. Urine eosinophils also positive at 1% 2. Fevers with evidence of 2 fluid collections at the previous surgical site [ L3-L5] raise concern for being infected -Status post ultrasound-guided aspiration of the superficial fluid collection, Gram stain negative, awaiting culture results 3. Acute kidney injury: Creatinine trending down. 4. Urinary tract infection: In presence of persistent fevers and if fluid collections over the surgical site in lumbar spine are negative, UTI may very well explain the fevers. Patient would benefit from imaging of kidneys and abdomen to rule out any drainable source Recommendations: Continue IV vancomycin with renal adjustment [pharmacy on board]. Target serum levels 10-20 -Trend lactic acid as initial one was 2.3 -Stop IV ceftriaxone 1 g every 24. Given recurrence of fevers, isolation of a gram-negative bacteria [non-lactose tire repairer: Which could suggest Pseudomonas or stenotrophomonas or something else]; will start on IV piperacillin tazobactam at 3.375 g every 6 hours Await urine culture finalization and blood cultures and await Gram stain and culture of ultrasound guided aspirate of those spinal fluid collection Consider abdominal ultrasound I spoke with the patient and Dr. Jamison [primary team] about my absence from [facility] for a previously planned trip to an international Infectious disease conference from May 28 till May 31. In the interim if there is any question pertaining to patient's antibiotics or infection; I would be available through email ([email or web address]). -Few scenarios could emerge as follows over next few days: 1. In case the cultures from lumbar area fluid collections are positive, patient would need complete drainage and antibiotics [based on ID and sensitivity] for 2 weeks at least with ID follow-up scheduled. 2. In case the cultures from lumbar fluid collections are negative, and patient is no longer afebrile; patient could finish her treatment duration with IV vancomycin [while inpatient] and oral doxycycline after that till May, 3. If ultrasound of kidneys suggest any pyelonephritis, patient would need at least 7 days of highly bioavailable antibiotic therapy [example: Oral ciprofloxacin or levofloxacin, IV ceftriaxone] Dylan Balderas MD Infectious disease
[2018-05-27 14:27] LABS: Vancomycin,Random 8.2 ug/mL
[2018-05-27] MEDS ORDERED: 0.9 % SODIUM CHLORIDE 10 ML SYRINGE IV PRN (14:43)
[2018-05-27] MEDS ORDERED: VANCOMYCIN 1,000 MG in 0.9 % SODIUM CHLORIDE 250 ML IV ONE (14:45)
[2018-05-27] MEDS: PIPERACILLIN SODIUM/TAZOBACTAM 3.375 GM in DEXTROSE 5% IN WATER 50 ML IV SCH ×2 (16:30→20:40)
[2018-05-27] MEDS ORDERED: cefTRIAXone 1 GM in DEXTROSE 5% IN WATER 50 ML IV SCH (17:45)
--- NOTE | 2018-05-27 20:01 | Internal Med Progress Note ---
Medical - PN: Subj Patient information: Note initiated : 05/27/18 at 7:59 pm Service Date, if different from initiated Date: [] Patient: Mary Triplett 62 y/o F admitted on 05/26/18 for Fever, Rash all over Body/MRSA. Chief Complaint: [] Interval history: Patient reports that she is feeling better but skin is still itchy fevers have resolved patient had urinary tract infection at her preop for her back surgery in March it looks like she had Klebsiella in the urine. Back surgery was complicated with MRSA in the superficial wound and that was drained. Patient with severe rash and fevers yesterday but that has resolved stopping daptomycin and furosemide. Additionally she was treated with Rocephin for urinary tract infection which would cover Klebsiella but would potentially not cover such bacteria as Pseudomonas. Patient is complete by her - Constitutional Vitals: Vital Signs Temp Pulse Resp BP Pulse Ox 98.0 F 106 H 18 97/57 92 05/27/18 16:00 05/27/18 16:00 05/27/18 16:00 05/27/18 16:00 05/27/18 16:00 Period Temp Pulse Resp BP Sys/Minaya Pulse Ox Last 24 Hr 97.8 F-101.3 F 87-108 18-22 91-108/55-64 90-93 Intake and Output 05/27/18 05/27/18 05/27/18 05:59 13:59 21:59 Intake Total 200 / 200 710 / 710 Output Total 975 / 975 450 / 450 Balance -775 / -775 260 / 260 Weight 270 lb Patient Weight 05/28/18 05:59 Weight 270 lb Intake & Output: Intake & Output 05/27/18 05/27/18 05/27/18 05:59 13:59 21:59 Intake Total 200 / 200 710 / 710 Output Total 975 / 975 450 / 450 Balance -775 / -775 260 / 260 Weight 270 lb Intake: IV 50 / 50 Zosyn 3.375 gm In Dextrose 5% 50 / 50 in Water 50 ml @ 100 mls/hr IV Q6H [facility] Rx#:[id number] Oral 200 / 200 660 / 660 Output: Urine Catheter Amount 975 / 975 450 / 450 Uretheral (Garibay) 450 / 450 Other: Meal Dinner Percent of Meal Consumed 50% Urine Appearance Clear Clear Sediment Uretheral (Garibay) Clear Clear Sediment Urine Color Dark Yellow Bright Yellow Uretheral (Garibay) Bright Yellow Bright Yellow Urine Odor Strong Uretheral (Garibay) Normal General appearance: morbidly obese, no no acute distress - Respiratory Respiratory exam: Present: rales (in the bases) - Cardiovascular Cardiovascular exam: Present: normal rate and rhythm - Extremities Exam Extremities exam: Present: pedal edema (1-2+ bilaterally) - Skin Skin exam: Present: erythema, rash Additional comments: The papules of the face have decreased. She still has macular erythema rash and areas of confluence. The torso and upper thighs with confluent macular rash and the lower extremities and arms with macular diffuse rash with 3 mm macules. These are not raised to palpation no ulceration seen. Medical - PN: Obj Da - Labs CBC & Chem 7: 05/27/18 04:35 05/27/18 04:30 Labs: Abnormal Lab Results 05/27/18 05/27/18 05/27/18 04:35 04:30 04:30 WBC 13.1 H RBC 3.57 L Hgb 10.6 L Hct 32.4 L RDW 14.6 H Lymph % (Auto) 6.7 L Eos % (Auto) 7.1 H Gran # 10.3 H Lymph # (Auto) 0.9 L [place] # (Auto) 1.1 H Eos # (Auto) 0.9 H Lymphocytes % Eosinophils % (Manual) ESR 29 H VBG Lactic Acid Creatinine 1.4 H Glucose 116 H Calcium 8.5 L Alkaline Phosphatase Albumin Urine Nitrate Ur Leukocyte Esterase Urine WBC 05/26/18 05/26/18 05/26/18 16:12 10:15 09:12 WBC RBC Hgb Hct RDW Lymph % (Auto) Eos % (Auto) Gran # Lymph # (Auto) [place] # (Auto) Eos # (Auto) Lymphocytes % Eosinophils % (Manual) ESR VBG Lactic Acid 2.3 H Creatinine 1.7 H Glucose 175 H Calcium Alkaline Phosphatase 130 H Albumin 3.0 L Urine Nitrate Pos A Ur Leukocyte Esterase 500 A Urine WBC 12 H 05/26/18 09:12 WBC 11.9 H RBC 3.74 L Hgb 11.1 L Hct 33.7 L RDW Lymph % (Auto) Eos % (Auto) Gran # Lymph # (Auto) [place] # (Auto) Eos # (Auto) Lymphocytes % 10 L Eosinophils % (Manual) 9 H ESR VBG Lactic Acid Creatinine Glucose Calcium Alkaline Phosphatase Albumin Urine Nitrate Ur Leukocyte Esterase Urine WBC Meds: Medications Acetaminophen (Tylenol) 650 mg PO Q6HP PRN PRN Reason: PAIN/FEVER > 101 Last Admin: 05/27/18 09:29 Dose: 650 mg Hydrocodone Bitart/Acetaminophen ([place] 7.5/325mg) 1 - 2 tab PO Q4HP PRN PRN Reason: Pain Last Admin: 05/26/18 21:57 Dose: 1 tab Citalopram Hydrobromide (Celexa) 40 mg PO DAILY [facility] Last Admin: 05/27/18 08:51 Dose: 40 mg Diphenhydramine HCl (Benadryl) 25 mg PO Q4HP PRN PRN Reason: Allergic Symptoms Last Admin: 05/27/18 05:58 Dose: 25 mg Divalproex Sodium (Depakote Er) 250 mg PO HS [facility] Last Admin: 05/26/18 21:54 Dose: 250 mg Docusate Sodium (Colace) 100 mg PO BID [facility] Last Admin: 05/27/18 08:52 Dose: 100 mg Enoxaparin Sodium (Lovenox) 40 mg SQ DAILY [facility] Last Admin: 05/27/18 08:51 Dose: 40 mg Ergocalciferol (Drisdol) 50,000 unit PO TuSa@0900 [facility] Gabapentin (Neurontin) 600 mg PO HS [facility] Last Admin: 05/26/18 21:55 Dose: 600 mg Heparin Sodium (Porcine) (Heparin Flush) 2 ml IV Q12 [facility] Piperacillin Sod/Tazobactam (Sod 3.375 gm/ Dextrose) 50 mls @ 100 mls/hr IV Q6H [facility] Last Infusion: 05/27/18 17:00 Dose: Infused [place] Carbonate ([place] Carbonate) 300 mg PO HS [facility] Magnesium Hydroxide (Milk Of Magnesia) 30 ml PO DAILYP PRN PRN Reason: Constipation Multivit/Ca Carb/B Cmplx/FA/Prenat (Diatx) 1 tab PO DAILY [facility] Last Admin: 05/27/18 13:05 Dose: 1 tab Oxycodone HCl (Roxicodone) 5 mg PO Q4HP PRN PRN Reason: PAIN LEVEL 3-6 Pantoprazole Sodium (Protonix) 40 mg PO ACB [facility] Last Admin: 05/27/18 13:00 Dose: 40 mg Risperidone (Risperdal) 0.5 mg PO BID [facility] Last Admin: 05/27/18 08:51 Dose: 0.5 mg Sodium Chloride (Saline Flush) 10 ml IV UD PRN PRN Reason: FLUSH Sodium Chloride (Saline Flush) 10 ml IV Q12 [facility] Vancomycin HCl (Vancomycin Per Pharmacy) 1 order IV UD [facility] Medical - PN: A/P - Time Spent With Patient Total time spent is greater than 50% in coordination of care (as documented) at patient's floor/unit and/or counseling patient: Greater than 35 minutes (1) Allergic reaction caused by a drug Status: Acute Assessment and plan: Improving. I suspect this is daptomycin but could also be furosemide. She will need to resume diuretic and at this time going to go with Bumex. If there is additional worsening of the rash then I suspect the culprit would be the furosemide Current Visit: Yes (2) MRSA (methicillin resistant staph aureus) culture positive Problem details: post op surgical wound. on dapto and recommended to resume vancomycin. will address tomorrow with antibiotics. await culture results from lumbar sampling 5cm fluid collection. Status: Chronic Assessment and plan: Resume vancomycin with pharmacy dosing Current Visit: Yes (3) UTI (urinary tract infection) Status: Acute Assessment and plan: Urine culture pending. Antibiotic changed to Zosyn per Dr. Balderas . We discussed CT chest abdomen pelvis with contrast but given the decrease in fever and the elevated creatinine I will proceed with ultrasound to look at the kidneys first Current Visit: Yes (4) Fever Status: Acute Assessment and plan: Resolved Current Visit: Yes (5) Parkinsons Status: Chronic Assessment and plan: We'll follow continue with physical therapy. No significant cogwheeling rigidity currently Current Visit: No (6) Morbid (severe) obesity due to excess calories Status: Acute Assessment and plan: Patient is not a diabetic but I counseled her regarding need for weight loss especially with her current illness and she is agreeable to diabetic diet Current Visit: Yes
[2018-05-27] MEDS: GABAPENTIN 300 MG CAPSULE PO SCH (20:38)
[2018-05-27] MEDS: HYDROCODONE/APAP 7.5/325MG TABLET PO PRN (20:38)
[2018-05-27] MEDS: LITHIUM CARBONATE 150 MG CAPSULE PO SCH (20:39)
[2018-05-27] MEDS: DIVALPROEX SODIUM 250 MG TAB.ER.24H PO SCH (20:39)
[2018-05-28] MEDS: PIPERACILLIN SODIUM/TAZOBACTAM 3.375 GM in DEXTROSE 5% IN WATER 50 ML IV SCH ×3 (00:51→12:11)
[2018-05-28] MEDS: HYDROCODONE/APAP 7.5/325MG TABLET PO PRN ×4 (05:01→23:21)
[2018-05-28] MEDS: 0.9 % SODIUM CHLORIDE 10 ML SYRINGE IV SCH ×3 (05:03→22:57)
[2018-05-28 05:42] LABS: Mean Cell Volume 89.8 fL (80.0-100.0); Mean Corpuscular HGB Conc 32.8 g/dL (31.0-36.0); Mean Corpuscular Hemoglobin 29.5 pg (26.0-34.0); Platelet Count 364 K/mcL (140-440); RBC 3.34 M/mcL (4.00-5.20); Red Cell Distribution Width 14.8 % (11.5-14.5)
[2018-05-28 05:53] LABS: Blood Urea Nitrogen 19 mg/dl (8-23)
[2018-05-28 07:22] LABS: Band Neutrophils % 1 % (0-10); Eosinophils % (Manual) 3 % (0-7); Lymphocytes % 13 % (15-49); Monocytes % (Manual) 8 % (1-12); Platelet Estimate NORMAL (NORMAL); RBC Morphology ABNORM (NORMAL); Segmented Neutrophils % 75 % (38-78)
[2018-05-28] MEDS: PANTOPRAZOLE 40 MG TABLET PO SCH (07:52)
[2018-05-28] MEDS: BUMETANIDE 1 MG TABLET PO SCH (09:38)
[2018-05-28] MEDS: risperiDONE 0.25 MG TABLET PO SCH ×2 (09:38→22:57)
[2018-05-28] MEDS: CITALOPRAM 20 MG TABLET PO SCH (09:39)
[2018-05-28] MEDS: FOLIC ACID/VITAMIN B COMP W-C 1 TAB TABLET PO SCH (09:39)
[2018-05-28] MEDS: ENOXAPARIN 40 MG/0.4 ML SYRINGE SQ SCH (09:40)
--- NOTE | 2018-05-28 09:45 | Ultrasound Report ---
CLINICAL INFORMATION: recurrent UTI COMPARISON: None. FINDINGS: Both kidneys are normal and symmetric in size, position, configuration and echotexture: The Right is 10 x 5 cm and the left is 10.9 x 5 cm. No stones, solid/cystic lesions or evidence of hydronephrosis. Arterial blood flow is symmetric in both kidneys on color Doppler. Garibay catheter is in place bladder is decompressed. No gross bladder lesions IMPRESSION: Negative Interpreted and Authenticated by: Adolph Sommer 05/28/18
--- NOTE | 2018-05-28 10:33 | Internal Med Progress Note ---
<Andi Ramírez - Last Filed: 05/28/18 10:58> Medical - PN: Subj Patient information: Note initiated : 05/28/18 at 10:31 am Service Date, if different from initiated Date: [] Patient: Mary Triplett 62 y/o F admitted on 05/26/18 for Fever, Rash all over Body/MRSA. Chief Complaint: [] Interval history: Patient slept well last night. Says that she feels much better. Had a fever of 101.6 last night at around 2200. Received Tylenol and fever improved. Saw patient this morning at 1020. Face has cleared up, but still has patchy macular rash over rest of body. - Constitutional Vitals: Vital Signs Temp Pulse Resp BP Pulse Ox 98.5 F 90 20 111/68 96 05/28/18 07:25 05/28/18 07:25 05/28/18 07:25 05/28/18 07:25 05/28/18 07:56 Period Temp Pulse Resp BP Sys/Minaya Pulse Ox Last 24 Hr 97.7 F-101.6 F 70-108 18-24 90-124/50-76 91-96 Intake and Output 05/27/18 05/28/18 05/28/18 21:59 05:59 13:59 Intake Total 760 / 760 600 / 600 50 / 50 Output Total 450 / 450 425 / 425 Balance 310 / 310 175 / 175 50 / 50 Weight 274 lb Intake & Output: Intake & Output 05/27/18 05/28/18 05/28/18 21:59 05:59 13:59 Intake Total 760 / 760 600 / 600 50 / 50 Output Total 450 / 450 425 / 425 Balance 310 / 310 175 / 175 50 / 50 Weight 274 lb Intake: IV 100 / 100 50 / 50 50 / 50 Zosyn 3.375 gm In Dextrose 5% 100 / 100 50 / 50 50 / 50 in Water 50 ml @ 100 mls/hr IV Q6H [facility] Rx#:[id number] Oral 660 / 660 550 / 550 Output: Urine Catheter Amount 450 / 450 425 / 425 Uretheral (Garibay) 450 / 450 Other: Meal Dinner Percent of Meal Consumed 50% Urine Appearance Clear Clear Uretheral (Garibay) Clear Clear Urine Color Bright Yellow Straw Straw Uretheral (Garibay) Bright Yellow Bright Yellow Urine Odor Normal Normal Normal Uretheral (Garibay) Normal Normal General appearance: cooperative, morbidly obese, no acute distress - Respiratory Respiratory exam: Present: normal respiratory exam, CTAB Additional comments: breaths were a bit shallow - Cardiovascular Cardiovascular exam: Present: RRR. Absent: gallop, rubs, systolic murmur - GI/Abdominal GI/Abdominal exam: Present: normal bowel sounds, soft. Absent: guarding, rigid , tenderness - Extremities Exam Extremities exam: Present: pedal edema, Foot pink and warm. Absent: tenderness Additional comments: non, pitting - Skin Skin exam: Present: mottled, rash, warm - Expanded Skin Exam Description of rash: Present: erythematous, macular Medical - PN: Obj Da - Labs CBC & Chem 7: 05/28/18 04:30 05/28/18 04:30 Labs: Abnormal Lab Results 05/28/18 05/28/18 05/27/18 04:30 04:30 04:35 WBC 14.8 H 13.1 H RBC 3.34 L 3.57 L Hgb 9.8 L 10.6 L Hct 30.0 L 32.4 L RDW 14.8 H 14.6 H Lymph % (Auto) 6.7 L Eos % (Auto) 7.1 H Gran # 10.3 H Lymph # (Auto) 0.9 L [place] # (Auto) 1.1 H Eos # (Auto) 0.9 H Lymphocytes % 13 L Eosinophils % (Manual) Nucleated RBCs 1 H RBC Morphology Abnorm A Polychromasia 1+ A ESR VBG Lactic Acid Carbon Dioxide 21 L Creatinine 1.8 H Glucose 116 H Calcium 8.3 L Alkaline Phosphatase Albumin Urine Nitrate Ur Leukocyte Esterase Urine WBC 05/27/18 05/27/18 05/26/18 04:30 04:30 16:12 WBC RBC Hgb Hct RDW Lymph % (Auto) Eos % (Auto) Gran # Lymph # (Auto) [place] # (Auto) Eos # (Auto) Lymphocytes % Eosinophils % (Manual) Nucleated RBCs RBC Morphology Polychromasia ESR 29 H VBG Lactic Acid Carbon Dioxide Creatinine 1.4 H Glucose 116 H Calcium 8.5 L Alkaline Phosphatase Albumin Urine Nitrate Pos A Ur Leukocyte Esterase 500 A Urine WBC 12 H 05/26/18 05/26/18 05/26/18 10:15 09:12 09:12 WBC 11.9 H RBC 3.74 L Hgb 11.1 L Hct 33.7 L RDW Lymph % (Auto) Eos % (Auto) Gran # Lymph # (Auto) [place] # (Auto) Eos # (Auto) Lymphocytes % 10 L Eosinophils % (Manual) 9 H Nucleated RBCs RBC Morphology Polychromasia ESR VBG Lactic Acid 2.3 H Carbon Dioxide Creatinine 1.7 H Glucose 175 H Calcium Alkaline Phosphatase 130 H Albumin 3.0 L Urine Nitrate Ur Leukocyte Esterase Urine WBC Meds: Medications Acetaminophen (Tylenol) 650 mg PO Q6HP PRN PRN Reason: PAIN/FEVER > 101 Last Admin: 05/27/18 22:02 Dose: 650 mg Hydrocodone Bitart/Acetaminophen ([place] 7.5/325mg) 1 - 2 tab PO Q4HP PRN PRN Reason: Pain Last Admin: 05/28/18 05:01 Dose: 1 tab Bumetanide (Bumex) 1 mg PO DAILY [facility] Last Admin: 05/28/18 09:38 Dose: 1 mg Citalopram Hydrobromide (Celexa) 40 mg PO DAILY [facility] Last Admin: 05/28/18 09:39 Dose: 40 mg Diphenhydramine HCl (Benadryl) 25 mg PO Q4HP PRN PRN Reason: Allergic Symptoms Last Admin: 05/27/18 05:58 Dose: 25 mg Divalproex Sodium (Depakote Er) 250 mg PO HS [facility] Last Admin: 05/27/18 20:39 Dose: 250 mg Docusate Sodium (Colace) 100 mg PO BID [facility] Last Admin: 05/27/18 20:40 Dose: 100 mg Enoxaparin Sodium (Lovenox) 40 mg SQ DAILY [facility] Last Admin: 05/28/18 09:40 Dose: 40 mg Ergocalciferol (Drisdol) 50,000 unit PO TuSa@0900 [facility] Gabapentin (Neurontin) 600 mg PO HS [facility] Last Admin: 05/27/18 20:38 Dose: 600 mg Heparin Sodium (Porcine) (Heparin Flush) 2 ml IV Q12 [facility] Last Admin: 05/28/18 09:39 Dose: 2 ml Piperacillin Sod/Tazobactam (Sod 3.375 gm/ Dextrose) 50 mls @ 100 mls/hr IV Q6H [facility] Last Infusion: 05/28/18 10:22 Dose: Infused [place] Carbonate ([place] Carbonate) 300 mg PO HS [facility] Last Admin: 05/27/18 20:39 Dose: 300 mg Magnesium Hydroxide (Milk Of Magnesia) 30 ml PO DAILYP PRN PRN Reason: Constipation Multivit/Ca Carb/B Cmplx/FA/Prenat (Diatx) 1 tab PO DAILY [facility] Last Admin: 05/28/18 09:39 Dose: 1 tab Oxycodone HCl (Roxicodone) 5 mg PO Q4HP PRN PRN Reason: PAIN LEVEL 3-6 Pantoprazole Sodium (Protonix) 40 mg PO ACB [facility] Last Admin: 05/28/18 07:52 Dose: 40 mg Risperidone (Risperdal) 0.5 mg PO BID [facility] Last Admin: 05/28/18 09:38 Dose: 0.5 mg Sodium Chloride (Saline Flush) 10 ml IV UD PRN PRN Reason: FLUSH Sodium Chloride (Saline Flush) 10 ml IV Q12 [facility] Last Admin: 05/28/18 05:03 Dose: 10 ml Vancomycin HCl (Vancomycin Per Pharmacy) 1 order IV UD [facility] Medical - PN: A/P - Time Spent With Patient Total time spent is greater than 50% in coordination of care (as documented) at patient's floor/unit and/or counseling patient: Greater than 35 minutes (1) Acute kidney injury Status: Chronic Assessment and plan: Creatinine is still elevated to 1.8-1.9, but BUN is normal. US of kidney shows normal size, no stones, no obstructions and normal blood flow per Dr. Johnson. Elevated labs could be from diuretics. Will continue following kidney function labs and change meds accordingly. Current Visit: Yes (2) Allergic reaction caused by a drug Status: Acute Assessment and plan: Rash on face has cleared up from last night. Macular patchy rash is still covers the rest of the body. Will continue with the vanco per Dr. Balderas recommendation and monitor the changes of the rash. Current Visit: Yes (3) UTI (urinary tract infection) Status: Acute Assessment and plan: Patient's US suggests no sign of hydronephrosis or obstruction. Past labs of elevated urine leukocyte esterase suggestive of UTI. Will continue piper/tazo until repeat urine labs come back. Current Visit: Yes (4) Fever Status: Acute Assessment and plan: Patient has fever last night at around 2200 and was given Tylenol. Temp shortly after returned to normal. Will continue to monitor temp for fever spikes while continuing vanco, piper/tazo combo. Unsure of fevers origin. Will continue to manage with Tylenol until etiology confirmed. Current Visit: Yes <YaquelinJohn - Last Filed: 05/28/18 13:27> Medical - PN: Subj Patient information: Note initiated : 05/28/18 at 1:22 pm Service Date, if different from initiated Date: [] Patient: Mary Triplett 62 y/o F admitted on 05/26/18 for Fever, Rash all over Body/MRSA. Chief Complaint: [] Interval history: has left arm PICC doesnt draw well but flushes fine. been in for over a month remote hx of tongue mild itchy swollen with bactrim but finished course for UTI no problem on it at that time. - Constitutional Vitals: Vital Signs Temp Pulse Resp BP Pulse Ox 98.8 F 88 20 113/65 95 05/28/18 11:39 05/28/18 11:39 05/28/18 11:39 05/28/18 11:39 05/28/18 11:39 Period Temp Pulse Resp BP Sys/Minaya Pulse Ox Last 24 Hr 97.7 F-101.6 F 70-106 18-24 90-124/50-76 92-96 Intake and Output 05/27/18 05/28/18 05/28/18 21:59 05:59 13:59 Intake Total 760 / 760 600 / 600 100 / 100 Output Total 450 / 450 425 / 425 Balance 310 / 310 175 / 175 100 / 100 Weight 274 lb Intake & Output: Intake & Output 05/27/18 05/28/18 05/28/18 21:59 05:59 13:59 Intake Total 760 / 760 600 / 600 100 / 100 Output Total 450 / 450 425 / 425 Balance 310 / 310 175 / 175 100 / 100 Weight 274 lb Intake: IV 100 / 100 50 / 50 100 / 100 Zosyn 3.375 gm In Dextrose 5% 100 / 100 50 / 50 100 / 100 in Water 50 ml @ 100 mls/hr IV Q6H [facility] Rx#:[id number] Oral 660 / 660 550 / 550 Output: Urine Catheter Amount 450 / 450 425 / 425 Uretheral (Garibay) 450 / 450 Other: Meal Dinner Percent of Meal Consumed 50% Urine Appearance Clear Clear Uretheral (Garibay) Clear Clear Urine Color Bright Yellow Straw Straw Uretheral (Garibay) Bright Yellow Bright Yellow Urine Odor Normal Normal Normal Uretheral (Garibay) Normal Normal Stool Size Large Stool Consistency Loose # Bowel Movements 2 - Extremities Exam Extremities exam: Present: pedal edema - Skin Skin exam: Absent: mottled Additional comments: macular rash fading and decreasing in area Medical - PN: Obj Da - Labs CBC & Chem 7: 05/28/18 04:30 05/28/18 04:30 Labs: Abnormal Lab Results 05/28/18 05/28/18 05/27/18 04:30 04:30 04:35 WBC 14.8 H 13.1 H RBC 3.34 L 3.57 L Hgb 9.8 L 10.6 L Hct 30.0 L 32.4 L RDW 14.8 H 14.6 H Lymph % (Auto) 6.7 L Eos % (Auto) 7.1 H Gran # 10.3 H Lymph # (Auto) 0.9 L [place] # (Auto) 1.1 H Eos # (Auto) 0.9 H Lymphocytes % 13 L Eosinophils % (Manual) Nucleated RBCs 1 H RBC Morphology Abnorm A Polychromasia 1+ A ESR VBG Lactic Acid Carbon Dioxide 21 L Creatinine 1.8 H Glucose 116 H Calcium 8.3 L Alkaline Phosphatase Albumin Urine Nitrate Ur Leukocyte Esterase Urine WBC 05/27/18 05/27/18 05/26/18 04:30 04:30 16:12 WBC RBC Hgb Hct RDW Lymph % (Auto) Eos % (Auto) Gran # Lymph # (Auto) [place] # (Auto) Eos # (Auto) Lymphocytes % Eosinophils % (Manual) Nucleated RBCs RBC Morphology Polychromasia ESR 29 H VBG Lactic Acid Carbon Dioxide Creatinine 1.4 H Glucose 116 H Calcium 8.5 L Alkaline Phosphatase Albumin Urine Nitrate Pos A Ur Leukocyte Esterase 500 A Urine WBC 12 H 05/26/18 05/26/18 05/26/18 10:15 09:12 09:12 WBC 11.9 H RBC 3.74 L Hgb 11.1 L Hct 33.7 L RDW Lymph % (Auto) Eos % (Auto) Gran # Lymph # (Auto) [place] # (Auto) Eos # (Auto) Lymphocytes % 10 L Eosinophils % (Manual) 9 H Nucleated RBCs RBC Morphology Polychromasia ESR VBG Lactic Acid 2.3 H Carbon Dioxide Creatinine 1.7 H Glucose 175 H Calcium Alkaline Phosphatase 130 H Albumin 3.0 L Urine Nitrate Ur Leukocyte Esterase Urine WBC Meds: Medications Acetaminophen (Tylenol) 650 mg PO Q6HP PRN PRN Reason: PAIN/FEVER > 101 Last Admin: 05/27/18 22:02 Dose: 650 mg Hydrocodone Bitart/Acetaminophen ([place] 7.5/325mg) 1 - 2 tab PO Q4HP PRN PRN Reason: Pain Last Admin: 05/28/18 05:01 Dose: 1 tab Bumetanide (Bumex) 1 mg PO DAILY [facility] Last Admin: 05/28/18 09:38 Dose: 1 mg Citalopram Hydrobromide (Celexa) 40 mg PO DAILY [facility] Last Admin: 05/28/18 09:39 Dose: 40 mg Diphenhydramine HCl (Benadryl) 25 mg PO Q4HP PRN PRN Reason: Allergic Symptoms Last Admin: 05/27/18 05:58 Dose: 25 mg Divalproex Sodium (Depakote Er) 250 mg PO [facility] Last Admin: 05/27/18 20:39 Dose: 250 mg Docusate Sodium (Colace) 100 mg PO BID [facility] Last Admin: 05/28/18 11:05 Dose: Not Given Enoxaparin Sodium (Lovenox) 40 mg SQ DAILY [facility] Last Admin: 05/28/18 09:40 Dose: 40 mg Ergocalciferol (Drisdol) 50,000 unit PO TuSa@0900 [facility] Gabapentin (Neurontin) 600 mg PO [facility] Last Admin: 05/27/18 20:38 Dose: 600 mg Heparin Sodium (Porcine) (Heparin Flush) 2 ml IV Q12 [facility] Last Admin: 05/28/18 09:39 Dose: 2 ml Piperacillin Sod/Tazobactam (Sod 3.375 gm/ Dextrose) 50 mls @ 100 mls/hr IV Q6H [facility] Last Infusion: 05/28/18 13:08 Dose: Infused [place] Carbonate ([place] Carbonate) 300 mg PO HS [facility] Last Admin: 05/27/18 20:39 Dose: 300 mg Magnesium Hydroxide (Milk Of Magnesia) 30 ml PO DAILYP PRN PRN Reason: Constipation Multivit/Ca Carb/B Cmplx/FA/Prenat (Diatx) 1 tab PO DAILY [facility] Last Admin: 05/28/18 09:39 Dose: 1 tab Oxycodone HCl (Roxicodone) 5 mg PO Q4HP PRN PRN Reason: PAIN LEVEL 3-6 Pantoprazole Sodium (Protonix) 40 mg PO ACB [facility] Last Admin: 05/28/18 07:52 Dose: 40 mg Risperidone (Risperdal) 0.5 mg PO BID [facility] Last Admin: 05/28/18 09:38 Dose: 0.5 mg Sodium Chloride (Saline Flush) 10 ml IV UD PRN PRN Reason: FLUSH Sodium Chloride (Saline Flush) 10 ml IV Q12 [facility] Last Admin: 05/28/18 05:03 Dose: 10 ml Vancomycin HCl (Vancomycin Per Pharmacy) 1 order IV [facility] [place] Medical - PN: A/P - Time Spent With Patient Total time spent is greater than 50% in coordination of care (as documented) at patient's floor/unit and/or counseling patient: (1) Allergic reaction caused by a drug Status: Acute Current Visit: Yes (2) MRSA (methicillin resistant staph aureus) culture positive Problem details: post op surgical wound. on dapto and recommended to resume vancomycin. will address tomorrow with antibiotics. await culture results from lumbar sampling 5cm fluid collection. Status: Chronic Current Visit: Yes (3) UTI (urinary tract infection) Status: Acute Assessment and plan: pseudomonas covered with zosyn. consider simplify to ceftazidime if desired and fevers resolve. also consider line infection of fevers persist. held off on CT with contrast due to renal insufficiency Current Visit: Yes (4) Fever Status: Acute Current Visit: Yes (5) Parkinsons Status: Chronic Current Visit: No (6) Morbid (severe) obesity due to excess calories Status: Acute Current Visit: Yes
[2018-05-28] MEDS: DOCUSATE SODIUM 100 MG CAPSULE PO SCH ×2 (11:05→22:57)
[2018-05-28] MEDS ORDERED: VANCOMYCIN 500 MG in 0.9 % SODIUM CHLORIDE 100 ML IV ONE (16:00)
[2018-05-28] MEDS: diphenhydrAMINE 25 MG CAPSULE PO PRN ×2 (19:29→23:20)
[2018-05-28] MEDS: LITHIUM CARBONATE 150 MG CAPSULE PO SCH (22:57)
[2018-05-28] MEDS: GABAPENTIN 300 MG CAPSULE PO SCH (22:57)
[2018-05-28] MEDS: DIVALPROEX SODIUM 250 MG TAB.ER.24H PO SCH (22:57)
[2018-05-28] MEDS: CIPROFLOXACIN 400 MG/200 ML BAG IV SCH (22:58)
[2018-05-28] MEDS: DOXYCYCLINE HYCLATE 100 MG TABLET.ORL PO SCH (23:20)
[2018-05-29] MEDS: HYDROCODONE/APAP 7.5/325MG TABLET PO PRN (03:54)
[2018-05-29 06:56] LABS: Basophils # (Auto) 0 K/mcL (0.0-0.3); Basophils % (Auto) 0.1 % (0.0-2.0); Eosinophils # (Auto) 1.3 K/mcL (0.0-0.7); Eosinophils % (Auto) 9.7 % (0.0-7.0); Granulocytes % (Auto) 76.5 % (38.0-78.0); Lymphocytes % (Auto) 7.4 % (15.5-49.0); Mean Cell Volume 89.6 fL (80.0-100.0); Mean Corpuscular HGB Conc 32.5 g/dL (31.0-36.0); Mean Corpuscular Hemoglobin 29.1 pg (26.0-34.0); Monocytes # (Auto) 0.8 K/mcL (0.1-0.9); Monocytes % (Auto) 6.3 % (1.0-12.0); Platelet Count 361 K/mcL (140-440); Red Cell Distribution Width 14.6 % (11.5-14.5)
[2018-05-29] MEDS: PANTOPRAZOLE 40 MG TABLET PO SCH (07:30)
[2018-05-29] MEDS: diphenhydrAMINE 25 MG CAPSULE PO PRN (07:30)
[2018-05-29 07:43] LABS: ALT/SGPT 12 U/l (0-40); Albumin 2.6 gm/dL (3.2-5.2); Alkaline Phosphatase 106 U/L (39-117); Bilirubin,Direct < 0.2 mg/dL (0.0-0.3); Blood Urea Nitrogen 23 mg/dl (8-23); C-Reactive Protein 9.2 mg/dl (0.0-0.8); Gamma Glutamyl Transpeptidase 52 U/L (5-36); Uric Acid 8.1 mg/dL (2.5-8.0)
[2018-05-29 08:17] LABS: Erythrocyte Sedimentation Rate 24 mm/hr (0-20)
[2018-05-29] MEDS: DOCUSATE SODIUM 100 MG CAPSULE PO SCH (09:44)
[2018-05-29] MEDS: risperiDONE 0.25 MG TABLET PO SCH (09:44)
[2018-05-29] MEDS: BUMETANIDE 1 MG TABLET PO SCH (09:44)
[2018-05-29] MEDS: CITALOPRAM 20 MG TABLET PO SCH (09:44)
[2018-05-29] MEDS: DOXYCYCLINE HYCLATE 100 MG TABLET.ORL PO SCH (09:45)
[2018-05-29] MEDS: FOLIC ACID/VITAMIN B COMP W-C 1 TAB TABLET PO SCH (09:45)
[2018-05-29] MEDS: CIPROFLOXACIN 400 MG/200 ML BAG IV SCH (09:45)
[2018-05-29] MEDS: 0.9 % SODIUM CHLORIDE 10 ML SYRINGE IV SCH (09:46)
[2018-05-29] MEDS: ENOXAPARIN 40 MG/0.4 ML SYRINGE SQ SCH (09:46)
--- NOTE | 2018-05-29 12:23 | Discharge Summary ---
Medical - DS: Prov Patient information: Note initiated : 05/29/18 at 12:21 pm Service Date, if different from initiated Date: [] Patient: Mary Triplett 62 y/o F admitted on 05/26/18 for Fever, Rash all over Body/MRSA. Chief Complaint: [] Date of admission: 05/26/18 19:30 Discharge date: 05/29/18 Primary care physician: Lynda Matos Consults: 05/26/18 Consult to Physician [CONS] Stat Comment: Consulting Provider: John Jamison Reason For Exam: Physician to Consult Consult to Physician [CONS] Stat Comment: Consulting Provider: Dylan Balderas Reason For Exam: Physician to Consult Discharging clinician: Vishal Nails Medical - DS: Meds - Discharge Medications Prescriptions: Ciprofloxacin HCl [Cipro] 500 mg PO BID #14 tab diphenhydrAMINE [Benadryl] 25 mg PO Q4HP PRN #30 cap PRN Reason: Itching Doxycycline Hyclate 100 mg PO BID #10 tablet.orl Active and Home Medications: Home Medications Citalopram Hydrobromide [Celexa] 40 mg PO DAILY 12/29/15 [History Confirmed 10/12 Last Taken 05/26/18 08:00] Divalproex Sodium [Depakote] 250 mg PO HS 12/29/15 [History Confirmed 05/26/18 Last Taken 05/25/18 21:00] Ergocalciferol (Vitamin D2) [Vitamin D2] 50,000 unit PO 2-3XW 12/29/15 [History Confirmed 05/26/18 Last Taken 05/23/18] Gabapentin [Gralise] 600 mg PO HS 12/29/15 [History Confirmed 05/26/18 Last Taken 05/25/18 21:00] [place] Carbonate [Lithobid] 300 mg PO HS 12/29/15 [History Confirmed 05/26/18 Last Taken 05/25/18 21:00] Pantoprazole [Protonix] 20 mg PO BID 03/26/18 [History Confirmed 05/26/18 Last Taken 05/25/18 08:00] Hydrocodone/APAP 7.5/325Mg [[place] 7.5-325Mg] 1 - 2 tab PO Q4HP PRN #50 tab 05/01 [Rx Confirmed 05/26/18 Last Taken 05/25/18 21:30] daptomycin 500 mg intravenous solution 726 mg IV Q24H #21 each 05/20/18 [Rx Confirmed 05/26/18 Last Taken 05/25/18 10:00] Folic Acid/Vit Bcomp,C [Dialyvite Tablet] 1 each PO WEEKLY 05/26/18 [History Confirmed 05/26/18 Last Taken 05/20/18] Furosemide [Lasix] 40 mg PO DAILY 05/26/18 [History Confirmed 05/26/18 Last Taken 05/25/18 08:00] Potassium Chloride [Kdur] 10 meq PO BIDCC 05/26/18 [History Confirmed 05/26/18 Last Taken 05/25/18 21:00] risperiDONE [Risperdal] 0.5 mg PO BID 05/26/18 [History Confirmed 05/26/18 Last Taken 05/26/18 08:00] traMADol HCL [Ultram] 50 mg PO BID PRN 05/26/18 [History Confirmed 05/26/18 Last Taken 04/25/18] Medical - DS: Hosp Hospital course: Ms. Triplett is a 62 year old F Patient underwent surgery late March for L3-4-[address] Herring. Patient then had superficial dehiscence of the wound and was infected or colonized with MRSA and treated with vancomycin until 05/20. Patient was then switched to daptomycin due to difficulty managing her peak and trough levels which were unpredictable. Patient on the has had some irritability and was started on Risperdal but she was oriented taking Risperdal for greater than a year in the remote past. It has had good function for her psyche. Today she comes in with fever and rash that began last evening. She had suspicion that this is furosemide or possibly daptomycin as per Dr. Balderas. Due to fevers of greater than 100 she underwent MRI of the spine and this showed a fluid collection which has been sampled by Dr. Sommer. Patient is referred for admission regarding fever and rash and possible infected soft tissue fluid collection patient also has a UTI Patient is accompanied by her who reports that patient did initially have chills on occasion just from her Parkinson's but she has never had a rash or fever from Parkinson's. Patient tells me that immediately after starting daptomycin and she actually felt a little better on that then vancomycin until last evening. The furosemide she has been taking for later than 17 days. The Risperdal for greater than 5 days since restart but again she took that years ago UTI- Patient had pseudomonas payne sensitive in the urine, Renal USG is negative, will be treated with oral ciprofloxacin for 7 days. WOund infection- was supposed to be on dapto, but due to rash, (not sure if lasix caused this), was switched back to vancomycin, Fluid was aspirated from [facility] wound. Infectious disease was consulted who advised discharge on oral doxycycline x 5 more days. THe fluid aspiration culture was negative, likely a seroma ABNER on CKD- patient has creat of 1.7 on presentatin, was 1.4, but has stablized at 1.8, baseline creat is 1.2, I expect the creat to improve with cessation of IV antibiotic therapy. Its my understanding that the patient had supratherapeutic levels of vancomycin at the Nursing facility. Renal sonogram is neg for pyelonephritis, neg for hydronephrosis The patient is weak, but wishes to go home, she has all the necessary equipment at home and has used up nearly all her SNF days. She will be discharged home with home therapy. Discharge diagnosis: renal failure, UTI, wound - Time Spent with Patient Total time spent providing and/or coordinating discharge services: Medical - DS: Exam - Constitutional Vitals: Vital Signs Temp Pulse Resp BP BP Pulse Ox 05/29/18 11:06 98.6 F 18 101/60 97 05/29/18 06:45 98.7 F 104 H 18 105/61 94 05/29/18 03:41 99.8 F H 107 H 23 H 102/64 94 05/28/18 23:53 99.0 F 101 H 22 95/61 98 05/28/18 19:43 98 F 95 H 20 114/73 97 05/28/18 16:00 98.1 F 89 19 115/61 96 Intake and Output 05/28/18 05/29/18 05/29/18 21:59 05:59 13:59 Intake Total 100 / 100 1150 / 1150 Output Total 1020 / 1020 400 / 400 Balance -920 / -920 750 / 750 Intake: IV 100 / 100 200 / 200 Vancomycin 500 mg In Sodium 100 / 100 Chloride 0.9% 100 ml @ 100 mls/ hr IV ONCE ONE Rx#:[id number] Oral 950 / 950 Output: Urine Catheter Amount 1020 / 1020 400 / 400 Other: Meal Dinner Percent of Meal Consumed 25% Feeding Ability Assist with Tray Set Up Urine Appearance Uretheral (Garibay) Clear Urine Color Bright Yellow Bright Yellow Uretheral (Garibay) Bright Yellow Urine Odor Normal Uretheral (Garibay) Normal Stool Size Moderate Stool Color Brown Stool Consistency Liquid Loose # of times incontinent of 1 Bowels Weight 278 lb Additional comments: Constitutional; Afebrile, cooperative, alert, not in distress. Eyes- No icterus, , No periorbital swelling Ears- Ext ear normal, hearing normal to conversation. Neck- Midline trachea, supple Respiratory system: Air Entry equal on both sides, No crackles or wheezing, no rhonchi. CVS- Rate rhythm regular, S1,S2 heard, no gallop, no rub. Abdomen- Soft nontender abdomen, no organomegaly, no tenderness, no guarding or rigidity, [employer]- AOOx3, moving all extremities, no gross focal deficit noted. Medical - DS: Data Labs on day of discharge: Labs from last 24 hours 05/29/18 05/29/18 05/29/18 04:30 04:30 04:30 WBC 12.9 H RBC 3.70 L Hgb 10.8 L Hct 33.1 L MCV 89.6 MCH 29.1 MCHC 32.5 RDW 14.6 H Plt Count 361 MPV 8.6 Gran % 76.5 Lymph % (Auto) 7.4 L Wilkin % (Auto) 6.3 Eos % (Auto) 9.7 H Baso % (Auto) 0.1 Gran # 9.8 H Lymph # (Auto) 1.0 L Wilkin # (Auto) 0.8 Eos # (Auto) 1.3 H Baso # (Auto) 0 ESR 24 H Sodium 134 Potassium 3.6 Chloride 100 Carbon Dioxide 17 L Anion Gap 17.0 H BUN 23 Creatinine 1.8 H GFR Calculation 30 Glucose 121 H Uric Acid 8.1 H Calcium 8.7 Phosphorus 3.8 Magnesium 1.6 Total Bilirubin 0.2 Direct Bilirubin < 0.2 GGT 52 H AST 15 ALT 12 Alkaline Phosphatase 106 Lactate Dehydrogenase 171 C-Reactive Protein 9.2 H Total Protein 5.1 L Albumin 2.6 L Globulin 2.5 Albumin/Globulin Ratio 1.0 Triglycerides 170 H Procalcitonin 0.39 Urine Eosinophils Vancomycin Trough 05/28/18 05/26/18 14:04 16:10 WBC RBC Hgb Hct MCV MCH MCHC RDW Plt Count MPV Gran % Lymph % (Auto) Wilkin % (Auto) Eos % (Auto) Baso % (Auto) Gran # Lymph # (Auto) Wilkin # (Auto) Eos # (Auto) Baso # (Auto) ESR Sodium Potassium Chloride Carbon Dioxide Anion Gap BUN Creatinine GFR Calculation Glucose Uric Acid Calcium Phosphorus Magnesium Total Bilirubin Direct Bilirubin GGT AST ALT Alkaline Phosphatase Lactate Dehydrogenase C-Reactive Protein Total Protein Albumin Globulin Albumin/Globulin Ratio Triglycerides Procalcitonin Urine Eosinophils None seen Vancomycin Trough 13.5 Preliminary micro results at discharge 05/26/18 14:30 Blood Culture - Preliminary Blood 05/26/18 14:30 Blood Culture - Preliminary Blood Medical - DS: A/P - Patient/Caregiver Discharge Instructions Activity: as per physical therapy, increase activity as tolerated Diet: Cardiac Additional Instructions: Please take doxycycline 100mg twice daily for 5 more days, Please take ciprofloxacin for 7 days Go to the ER if worsening symptoms, chest pain, shortness of breath or any other acute concern. Follow up with PCP in 1 week Please talk to your PCP with regards to checking your kidney function test in 1 week, if your kidney function is not back to your baseline, you may need evaluation by a kidney specialist. - Follow up Plan Follow up with: Lynda Matos [Primary Care Provider] - Disposition: Home Health Service Prognosis: Fair Rehab Potential: Fair I certify that the patient requires SNF services: No
[2018-05-30] MEDS ORDERED: ERGOCALCIFEROL (VITAMIN D2) 50,000 UNIT CAPSULE PO SCH (09:00)
== END 2018-05-29 15:30 | disposition home health service (06) | DRG 607 ==
LOC: ED 08:59 → MEDSUR 19:30
PROVIDERS: ADMIT Internal Medicine; ATTEND Internal Medicine
CPT/HCPCS: 62267; 84145; 87324; 87449; 97162; 99238; 99284; J0696; J0744; J1200; J1650; J2405; J2543; J3370; J7030; J7050; J7060

== ENCOUNTER 2024-05-04 23:07 | Inpatient (IN) ==
[2024-05-04] MEDS: ACETAMINOPHEN 1,000 MG/100 ML BAG IV ONE (23:31)
[2024-05-04] MEDS: 0.9 % SODIUM CHLORIDE 1,000 ML IV ONE (23:41)
[2024-05-05 00:40] LABS: Prothrombin Time 13.1 sec (11.9-14.5)
[2024-05-05 00:43] LABS: ALT/SGPT < 5 U/L (<40); AST/SGOT 20 U/L (<32); Albumin 3.3 gm/dL (3.2-5.2); Albumin/Globulin Ratio 1.4 (1.0-2.3); Alkaline Phosphatase 65 U/L (39-117); Bilirubin,Total < 0.2 mg/dL (0.1-1.0); Blood Urea Nitrogen 17 mg/dL (8-23); Carbon Dioxide 19 mmol/L (22-30); Chloride 107 mmol/L (96-108); Globulin 2.4 gm/dL (2.2-3.7); Glomerular Filtration Rate 42; Glucose 188 mg/dL (70-105); Sodium 137 mmol/L (133-145)
[2024-05-05 00:44] LABS: Basophils # (Auto) 0.02 K/mcL (0.00-0.30); Basophils % (Auto) 0.4 % (0.0-2.0); Eosinophils # (Auto) 0.02 K/mcL (0.00-0.70); Eosinophils % (Auto) 0.4 % (0.0-7.0); Hemoglobin 10.4 g/dL (11.2-15.7); Lymphocytes # (Auto) 0.64 K/mcL (1.50-4.80); Lymphocytes % (Auto) 11.3 % (15.5-49.0); Mean Cell Volume 100.9 fL (80.0-100.0); Mean Corpuscular HGB Conc 30.6 g/dL (31.0-36.0); Mean Platelet Volume 10.1 fL (8.8-12.5); Monocytes # (Auto) 0.75 K/mcL (0.10-0.90); Monocytes % (Auto) 13.3 % (1.0-12.0); Neutrophils % (Auto) 74.2 % (38.0-78.0); Platelet Count 118 K/mcL (140-440); RBC 3.37 M/mcL (3.59-5.38); Red Cell Distribution Width 13.3 % (11.5-14.5); WBC 5.7 K/mcL (4.5-11.0)
[2024-05-05 01:00] LABS: Appearance,Urine Cloudy (Clear); Bacteria,Urine Many /hpf (0); Bilirubin,Urine Negative (Negative); Color,Urine Yellow; Glucose,Urine (UA) Negative (Negative); Ketones,Urine Negative (Negative); Leukocyte Esterase,Urine Small /uL (Negative); Nitrate,Urine Negative (Negative); Protein,Urine Negative (Negative); Urine Blood Moderate ery/mcL (Negative); Urine RBC 10 /hpf (0-3); Urine Squamous Epithelial Cell 9 /hpf (0-4); Urine Transitional Epi Cells 2 /hpf (0-2); Urine WBC 80 /hpf (0-4); Urobilinogen,Urine Normal
[2024-05-05] MEDS: cefTRIAXone 2 GM in DEXTROSE 5% IN WATER 50 ML IV ONE (01:35)
[2024-05-05] MEDS ORDERED: ONDANSETRON 4 MG/2 ML VIAL IV PRN (01:45)
[2024-05-05] MEDS: ACETAMINOPHEN 325 MG TABLET PO PRN (07:30)
[2024-05-05] MEDS ORDERED: ACETAMINOPHEN 325 MG TABLET PO PRN (10:11)
[2024-05-05] MEDS ORDERED: SENNOSIDES 1 TABLET PO PRN (10:11)
[2024-05-05] MEDS ORDERED: MAGNESIUM SULFATE 2 GM/50 ML BAG IV PRN (10:11)
[2024-05-05] MEDS ORDERED: POLYETHYLENE GLYCOL 3350 17 GM PACKET PO PRN (10:11)
[2024-05-05] MEDS ORDERED: POTASSIUM CHLORIDE 40 MEQ in DEXTROSE 5% IN WATER 500 ML IV PRN (10:11)
[2024-05-05] MEDS ORDERED: IPRATROPIUM/ALBUTEROL 3 ML AMPUL.NEB NEB PRN (10:11)
[2024-05-05] MEDS ORDERED: POTASSIUM CHLORIDE 20 MEQ TABLET PO PRN ×2 (10:11)
[2024-05-05] MEDS: CARBIDOPA/LEVODOPA 25/100 TABLET PO SCH (11:12)
[2024-05-05] MEDS: ENOXAPARIN 40 MG/0.4 ML SYRINGE SQ SCH (11:12)
[2024-05-05] MEDS: risperiDONE 0.25 MG TABLET PO SCH (11:12)
[2024-05-05] MEDS: HYDROCODONE/APAP 7.5/325MG TABLET PO PRN (13:48)
[2024-05-05] MEDS: ESCITALOPRAM 20 MG TABLET PO SCH (13:48)
[2024-05-05] MEDS: GABAPENTIN 300 MG CAPSULE PO SCH (14:43)
[2024-05-05] MEDS: Entacapone 200 mg tablet PO SCH (14:43)
[2024-05-05] MEDS: cefTRIAXone 1 GM VIAL IV SCH (17:54)
[2024-05-05] MEDS ORDERED: DIVALPROEX SODIUM ER 250 MG TABLET PO SCH (21:00)
[2024-05-05] MEDS: DIVALPROEX SODIUM ER 250 MG TABLET PO SCH (21:06)
[2024-05-05] MEDS: DOCUSATE SODIUM 100 MG CAPSULE PO SCH (21:06)
[2024-05-06 07:00] LABS: ALT/SGPT < 5 U/L (<40); AST/SGOT 24 U/L (<32); Albumin 3.1 gm/dL (3.2-5.2); Albumin/Globulin Ratio 1.3 (1.0-2.3); Alkaline Phosphatase 59 U/L (39-117); Bilirubin,Direct < 0.2 mg/dL (0-0.3); Bilirubin,Total < 0.2 mg/dL (0.1-1.0); Blood Urea Nitrogen 21 mg/dL (8-23); Calcium 7.7 mg/dL (8.6-10.4); Carbon Dioxide 21 mmol/L (22-30); Chloride 112 mmol/L (96-108); Globulin 2.4 gm/dL (2.2-3.7); Glomerular Filtration Rate 46; Glucose 106 mg/dL (70-105); Lactate Dehydrogenase 165 U/L (135-225); Phosphorous 3.6 mg/dL (2.5-4.5); Potassium 4.6 mmol/L (3.3-5.1); Sodium 142 mmol/L (133-145); Triglycerides 136 mg/dL (<150); Uric Acid 6.3 mg/dL (2.5-8.0)
[2024-05-06] MEDS: PANTOPRAZOLE 40 MG TABLET PO SCH (07:35)
[2024-05-06 08:01] LABS: Basophils # (Auto) 0.03 K/mcL (0.00-0.30); Basophils % (Auto) 0.6 % (0.0-2.0); Eosinophils # (Auto) 0.08 K/mcL (0.00-0.70); Eosinophils % (Auto) 1.6 % (0.0-7.0); Hematocrit 32.4 % (34.1-44.9); Hemoglobin 10.1 g/dL (11.2-15.7); Lymphocytes # (Auto) 1.86 K/mcL (1.50-4.80); Lymphocytes % (Auto) 36.9 % (15.5-49.0); Mean Cell Volume 95.3 fL (80.0-100.0); Mean Corpuscular HGB Conc 31.2 g/dL (31.0-36.0); Mean Platelet Volume 10.5 fL (8.8-12.5); Monocytes # (Auto) 0.84 K/mcL (0.10-0.90); Monocytes % (Auto) 16.7 % (1.0-12.0); Neutrophils % (Auto) 43.4 % (38.0-78.0); Platelet Count 132 K/mcL (140-440); Red Cell Distribution Width 13.5 % (11.5-14.5)
[2024-05-06] MEDS ORDERED: PANTOPRAZOLE 40 MG PACKET PO SCH (09:00)
[2024-05-06] MEDS ORDERED: BISMUTH SUBSALICYLATE 15 ML ORAL.SUSP PO PRN (10:06)
[2024-05-06] MEDS ORDERED: diphenhydrAMINE 25 MG CAPSULE PO PRN (10:06)
[2024-05-06] MEDS: BISMUTH SUBSALICYLATE 15 ML ORAL.SUSP PO ONE (11:33)
[2024-05-06] MEDS: MELATONIN 3 MG TABLET PO SCH (20:31)
[2024-05-07 06:56] LABS: ALT/SGPT < 5 U/L (<40); AST/SGOT 19 U/L (<32); Albumin 3.3 gm/dL (3.2-5.2); Albumin/Globulin Ratio 1.4 (1.0-2.3); Alkaline Phosphatase 59 U/L (39-117); Bilirubin,Direct < 0.2 mg/dL (0-0.3); Bilirubin,Total < 0.2 mg/dL (0.1-1.0); Blood Urea Nitrogen 22 mg/dL (8-23); Calcium 7.9 mg/dL (8.6-10.4); Carbon Dioxide 22 mmol/L (22-30); Chloride 115 mmol/L (96-108); Globulin 2.4 gm/dL (2.2-3.7); Glomerular Filtration Rate 52; Glucose 137 mg/dL (70-105); Lactate Dehydrogenase 163 U/L (135-225); Phosphorous 3.6 mg/dL (2.5-4.5); Potassium 5.5 mmol/L (3.3-5.1); Sodium 145 mmol/L (133-145); Triglycerides 159 mg/dL (<150); Uric Acid 6.7 mg/dL (2.5-8.0)
[2024-05-07] MEDS: SODIUM POLYSTYRENE SULFONATE 15 GM/60 ML SUSPENSION PO ONE (08:26)
[2024-05-08 06:55] LABS: Blood Urea Nitrogen 20 mg/dL (8-23); Calcium 7.8 mg/dL (8.6-10.4); Carbon Dioxide 21 mmol/L (22-30); Chloride 115 mmol/L (96-108); Glomerular Filtration Rate 58; Glucose 142 mg/dL (70-105); Potassium 4.9 mmol/L (3.3-5.1); Sodium 146 mmol/L (133-145)
== END 2024-05-08 08:05 | DRG 872 ==
LOC: ED 23:07 → MEDSUR 05-05 02:46
PROVIDERS: ADMIT Internal Medicine; ATTEND Internal Medicine